=== PATIENT | female | born 1940 | race Caucasian/White ===

== ENCOUNTER 2017-04-17 16:17 | Inpatient (IN) | payer MEDICARE ==
[2017-04-17] MEDS ORDERED: LORazepam 1 MG TAB PO STA (16:36)
--- NOTE | 2017-04-17 16:38 | ED ---
General Adult HPI - General Source: patient, RN notes reviewed Mode of arrival: wheelchair Limitations: no limitations <Carlos Ferguson - Last Filed: 04/17/17 16:38> <Marcus Mendiola - Last Filed: 04/17/17 18:29> - General Chief complaint: Arrhythmia/Palpitations Stated complaint: Palpitations Time Seen by Provider: 04/17/17 16:33 - History of Present Illness Initial comments: Patient is a pleasant 76-year-old female presenting to the emergency department complaining of palpitations. Onset was prior to arrival. Patient feels her heart is going irregular. Patient states there may be some mild associated nausea and mild shortness of breath. Patient is near symptom-free at this time. Patient does admit to feeling anxious. Patient states she has had similar symptoms previously however workup determined was only a mild problem. No history of arrhythmia. (Carlos Ferguson) - Related Data Home Medications Medication Instructions Recorded Confirmed Aspirin 81 mg PO HS 04/17/17 04/17/17 Calcium Carbonate/Vitamin D3 1 cap PO HS 04/17/17 04/17/17 [Calcium 600-Vit D3 400 Caplet] Cyanocobalamin (Vitamin B-12) 1,000 mcg PO HS 04/17/17 04/17/17 [Vitamin B-12] Ferrous Sulfate [Feosol] 325 mg PO HS 04/17/17 04/17/17 Levothyroxine Sodium [Synthroid] 50 mcg PO DAILY 04/17/17 04/17/17 Lisinopril-Hctz 20-25 mg 0.5 tab PO DAILY 04/17/17 04/17/17 [Zestoretic 20-25] Metoprolol Tartrate [Lopressor] 25 mg PO BID 04/17/17 04/17/17 Simvastatin [Zocor] 40 mg PO HS 04/17/17 04/17/17 Allergies Allergy/AdvReac Type Severity Reaction Status Date / Time losartan Allergy Rash/Hives Verified 04/17/17 16:57 Review of Systems ROS Other: All systems not noted in ROS Statement are negative. Constitutional: Denies: fever Eyes: Denies: eye pain ENT: Denies: ear pain Respiratory: Reports: dyspnea. Denies: cough Cardiovascular: Reports: palpitations. Denies: chest pain Endocrine: Denies: fatigue Gastrointestinal: Reports: nausea. Denies: abdominal pain Genitourinary: Denies: dysuria Musculoskeletal: Denies: back pain Skin: Denies: rash Neurological: Denies: weakness Psychiatric: Reports: anxiety <Carlos Ferguson - Last Filed: 04/17/17 16:38> ROS Other: All systems not noted in ROS Statement are negative. <Marcus Mendiola - Last Filed: 04/17/17 18:29> ROS Statement: Those systems with pertinent positive or pertinent negative responses have been documented in the HPI. Past Medical History Past Medical History: Hyperlipidemia, Hypertension, Thyroid Disorder Additional Past Medical History / Comment(s): palpitations History of Any Multi-Drug Resistant Organisms: None Reported Past Surgical History: No Surgical Hx Reported Past Psychological History: No Psychological Hx Reported Smoking Status: Former smoker Past Alcohol Use History: None Reported Past Drug Use History: None Reported <Carlos Ferguson - Last Filed: 04/17/17 16:38> General Exam Limitations: no limitations General appearance: alert, in no apparent distress Head exam: Present: atraumatic Eye exam: Present: normal appearance, PERRL ENT exam: Present: normal oropharynx Neck exam: Present: normal inspection Respiratory exam: Present: normal lung sounds bilaterally. Absent: respiratory distress Cardiovascular Exam: Present: normal rhythm, irregular rhythm, normal heart sounds GI/Abdominal exam: Present: soft. Absent: tenderness Extremities exam: Present: normal inspection. Absent: calf tenderness Neurological exam: Present: alert Psychiatric exam: Present: normal affect, normal mood Skin exam: Present: normal color <Carlos Ferguson - Last Filed: 04/17/17 16:38> General appearance: alert, in no apparent distress Head exam: Present: atraumatic, normocephalic, normal inspection Eye exam: Present: normal appearance, PERRL, EOMI. Absent: scleral icterus, conjunctival injection, periorbital swelling ENT exam: Present: normal exam, mucous membranes moist Neck exam: Present: normal inspection. Absent: tenderness, meningismus, lymphadenopathy Respiratory exam: Present: normal lung sounds bilaterally. Absent: respiratory distress, wheezes, rales, rhonchi, stridor Cardiovascular Exam: Present: regular rate, normal rhythm, normal heart sounds. Absent: systolic murmur, diastolic murmur, rubs, gallop, clicks GI/Abdominal exam: Present: soft, normal bowel sounds. Absent: distended, tenderness, guarding, rebound, rigid Extremities exam: Present: normal inspection, full ROM, normal capillary refill. Absent: tenderness, pedal edema, joint swelling, calf tenderness Back exam: Present: normal inspection Neurological exam: Present: alert, oriented X3, CN II-XII intact Psychiatric exam: Present: normal affect, normal mood Skin exam: Present: warm, dry, intact, normal color. Absent: rash <Marcus Mendiola - Last Filed: 04/17/17 18:29> Course <Carlos Ferguson - Last Filed: 04/17/17 16:38> <Marcus Mendiola - Last Filed: 04/17/17 18:29> Vital Signs 04/17/17 16:23 Temperature 97.9 F Pulse Rate 91 Respiratory 18 Rate Blood Pressure 208/86 O2 Sat by Pulse 93 L Oximetry - Reevaluation(s) Reevaluation #1: 04/17/17 16:[address] Mendiola (Carlos Ferguson) Reevaluation #2: 04/17/17 17:22 Patient remains with adequate rate control (Marcus Mendiola) EKG Findings - EKG Comments: EKG Findings:: A. fib with rate of 92. QRS 82. QT 360. QTC 445. Normal axis. Normal QRS. Nonspecific T waves. <Carlos Ferguson - Last Filed: 04/17/17 16:38> Medical Decision Making <Carlos Ferguson - Last Filed: 04/17/17 16:38> - Lab Data Result diagrams: 04/17/17 16:50 04/17/17 16:50 - Radiology Data Radiology results: report reviewed (Chest x-ray negative, CT chest is negative for PE), image reviewed <Marcus Mendiola - Last Filed: 04/17/17 18:29> - Medical Decision Making 68 female here for evaluation of palpitations, A. fib, patient is suspected A. fib with RVR, will be admitted as is his new onset atrial fibrillation with RVR. (Marcus Mendiola) - Lab Data Lab Results 04/17/17 04/17/17 04/17/17 Range/Units 16:50 16:50 16:50 WBC 10.4 (3.8-10.6) k/uL RBC 3.56 L (3.80-5.40) m/uL Hgb 11.4 (11.4-16.0) gm/dL Hct 32.8 L (34.0-46.0) % MCV 92.0 (80.0-100.0) fL MCH 32.1 (25.0-35.0) pg MCHC 34.9 (31.0-37.0) g/dL RDW 13.6 (11.5-15.5) % Plt Count 327 (150-450) k/uL Neutrophils % 64 % Lymphocytes % 27 % Monocytes % 6 % Eosinophils % 1 % Basophils % 0 % Neutrophils # 6.7 (1.3-7.7) k/uL Lymphocytes # 2.8 (1.0-4.8) k/uL Monocytes # 0.6 (0-1.0) k/uL Eosinophils # 0.1 (0-0.7) k/uL Basophils # 0.0 (0-0.2) k/uL PT (9.0-12.0) sec INR (<1.2) APTT (22.0-30.0) sec D-Dimer (<0.60) mg/L FEU Sodium 133 L (137-145) mmol/L Potassium 4.6 (3.5-5.1) mmol/L Chloride 95 L (98-107) mmol/L Carbon Dioxide 25 (22-30) mmol/L Anion Gap 13 mmol/L BUN 26 H (7-17) mg/dL Creatinine 1.10 H (0.52-1.04) mg/dL Est GFR (MDRD) Af Amer 58 (>60 ml/min/1.73 sqM) Est GFR (MDRD) Non-Af 48 (>60 ml/min/1.73 sqM) Glucose 140 H (74-99) mg/dL Calcium 9.6 (8.4-10.2) mg/dL Magnesium 1.8 (1.6-2.3) mg/dL Total Bilirubin 0.7 (0.2-1.3) mg/dL AST 33 (14-36) U/L ALT 52 (9-52) U/L Alkaline Phosphatase 178 H (38-126) U/L Total Creatine Kinase 74 (30-135) U/L CK-MB (CK-2) 1.6 (0.0-2.4) ng/mL CK-MB (CK-2) Rel Index 2.2 Troponin I <0.012 (0.000-0.034) ng/mL Total Protein 7.2 (6.3-8.2) g/dL Albumin 4.3 (3.5-5.0) g/dL TSH 2.940 (0.465-4.680) mIU/L Free T4 1.40 (0.78-2.19) ng/dL Free T3 pg/mL 3.2 (2.8-5.3) pg/ml 04/17/17 Range/Units 16:50 WBC (3.8-10.6) k/uL RBC (3.80-5.40) m/uL Hgb (11.4-16.0) gm/dL Hct (34.0-46.0) % MCV (80.0-100.0) fL MCH (25.0-35.0) pg MCHC (31.0-37.0) g/dL RDW (11.5-15.5) % Plt Count (150-450) k/uL Neutrophils % % Lymphocytes % % Monocytes % % Eosinophils % % Basophils % % Neutrophils # (1.3-7.7) k/uL Lymphocytes # (1.0-4.8) k/uL Monocytes # (0-1.0) k/uL Eosinophils # (0-0.7) k/uL Basophils # (0-0.2) k/uL PT 10.0 (9.0-12.0) sec INR 1.0 (<1.2) APTT 22.2 (22.0-30.0) sec D-Dimer 0.68 H (<0.60) mg/L FEU Sodium (137-145) mmol/L Potassium (3.5-5.1) mmol/L Chloride (98-107) mmol/L Carbon Dioxide (22-30) mmol/L Anion Gap mmol/L BUN (7-17) mg/dL Creatinine (0.52-1.04) mg/dL Est GFR (MDRD) Af Amer (>60 ml/min/1.73 sqM) Est GFR (MDRD) Non-Af (>60 ml/min/1.73 sqM) Glucose (74-99) mg/dL Calcium (8.4-10.2) mg/dL Magnesium (1.6-2.3) mg/dL Total Bilirubin (0.2-1.3) mg/dL AST (14-36) U/L ALT (9-52) U/L Alkaline Phosphatase (38-126) U/L Total Creatine Kinase (30-135) U/L CK-MB (CK-2) (0.0-2.4) ng/mL CK-MB (CK-2) Rel Index Troponin I (0.000-0.034) ng/mL Total Protein (6.3-8.2) g/dL Albumin (3.5-5.0) g/dL TSH (0.465-4.680) mIU/L Free T4 (0.78-2.19) ng/dL Free T3 pg/mL (2.8-5.3) pg/ml Critical Care Time Critical Care Time: Yes <Marcus Mendiola - Last Filed: 04/17/17 18:29> Disposition <Carlos Ferguson - Last Filed: 04/17/17 16:38> <Marcus Mendiola - Last Filed: 04/17/17 18:29> Clinical Impression: Atrial fibrillation with RVR Disposition: ADMITTED IP TO THIS HOSP Condition: Fair Referrals: Arpit Ramey DO [Primary Care Provider] - 1-2 days
[2017-04-17 17:01] LABS: Basophils % (A) 0 %; CH 31.3; CHCM 34.1; Eosinophils # (A) 0.1 k/uL (0-0.7); Eosinophils % (A) 1 %; HCT 32.8 % (34.0-46.0); HGB 11.4 gm/dL (11.4-16.0); Luc # (Auto) 0.16; Luc % (Auto) 2; Lymphocytes # (A) 2.8 k/uL (1.0-4.8); Lymphocytes % (A) 27 %; MCH 32.1 pg (25.0-35.0); MCHC 34.9 g/dL (31.0-37.0); Monocytes # (A) 0.6 k/uL (0-1.0); Monocytes % (A) 6 %; Neutrophils # (A) 6.7 k/uL (1.3-7.7); Neutrophils % (A) 64 %; RBC 3.56 m/uL (3.80-5.40); RDW 13.6 % (11.5-15.5); WBC 10.4 k/uL (3.8-10.6); WBC (Perox) 11.13
[2017-04-17 17:11] LABS: Calcium 9.6 mg/dL (8.4-10.2); Magnesium 1.8 mg/dL (1.6-2.3); Potassium 4.6 mmol/L (3.5-5.1); Total Bilirubin 0.7 mg/dL (0.2-1.3); Total Protein 7.2 g/dL (6.3-8.2)
[2017-04-17 17:14] LABS: Partial Thromboplastin Time 22.2 sec (22.0-30.0)
[2017-04-17 17:19] LABS: Creatine Kinase 74 U/L (30-135)
[2017-04-17] MEDS ORDERED: RX INFO: IV CONTRAST WAS GIVEN 1 EACH MISC MISCELLANE PRN (17:19)
[2017-04-17] MEDS ORDERED: NITROGLYCERIN SL TABS 0.4 MG TAB SUBLINGUAL PRN (17:20)
[2017-04-17] MEDS ORDERED: ASPIRIN 81 MG PO STA (17:20)
[2017-04-17 17:32] LABS: Creatine Kinase MB 1.6 ng/mL (0.0-2.4); Troponin I <0.012 ng/mL (0.000-0.034)
--- NOTE | 2017-04-17 17:32 | XR ---
EXAMINATION TYPE: XR chest 2V DATE OF EXAM: 04/17/2017 COMPARISON: Chest x-ray August 12, 2013. HISTORY: Dysrhythmia and shortness of breath TECHNIQUE: Frontal and lateral views of the chest are obtained. 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 There is no fo hari air space opacity, pleural effusion, or pneumothorax seen. The cardiac silhouette size is stable and mildly enlarged. Degenerative change bilateral shoulders is redemonstrated. IMPRESSION: Mild cardiomegaly without acute pulmonary process. No significant change from prior.
--- NOTE | 2017-04-17 18:10 | CT ---
EXAMINATION TYPE: CT angio chest DATE OF EXAM: 04/17/2017 COMPARISON: NONE HISTORY: SOB and palpitations today. CT DLP: 322.5 mGycm. Automated Exposure Control for Dose Reduction was Utilized. CONTRAST: CTA scan of the thorax is performed with IV Contrast, patient injected with 70 mL of Visipaque 320, p ulmonary embolism protocol. MIP Images are created on CT scanner and reviewed. FINDINGS: LUNGS: Dependent atelectasis in left lung base is present. There is additional linear scarring or ate lectasis in the left lung base. There is no concerning parenchymal nodule or mass identified bilatera lly. There is mild central peribronchial wall thickening. No pleural effusion or pneumothorax is seen laterally. MEDIASTINUM: There is satisfactory enhancement of the pulmonary artery and its branches, there is no CT evidence for pulmonary embolism. There are no greater than 1 cm hilar or mediastinal lymph nodes. No significant pericardial effusion is seen. Cardiomegaly is noted. There is mild left atrial and left ventricular dilatation. Some coronary artery calcification is seen which is noted marker for cor onary artery disease. OTHER: Dependent gallstones are seen in gallbladder. Visualized liver is somewhat small in size. [place] interposition is noted. There is mild multilevel spurring in thoracic spine. IMPRESSION: 1. No CT evidence for pulmonary embolism. 2. Mild cardiomegaly with suggestion of mild chronic bronchitis. No suspicious focal infiltrate.
[2017-04-17] MEDS: SODIUM CHLORIDE 0.9% 1,000 ML IV SCH (18:29)
[2017-04-17] MEDS ORDERED: HEPARIN SODIUM,PORCINE 5,000 UNIT/ML 1 ML VIAL IV PRN ×2 (18:30→23:59)
[2017-04-17] MEDS ORDERED: HEPARIN SODIUM,PORCINE/D5W PMX 25,000 UNIT in DEXTROSE/WATER 1 500ML.BAG IV SCH ×2 (18:30→23:15)
[2017-04-17] MEDS ORDERED: HEPARIN SODIUM,PORCINE 10,000 UNIT/ML 1 ML VIAL IV ONE (18:30)
[2017-04-17 21:57] VITALS: BMI 31.6
[2017-04-17 23:06] LABS: Creatine Kinase 72 U/L (30-135)
[2017-04-17 23:19] LABS: Creatine Kinase MB 1.6 ng/mL (0.0-2.4); Troponin I <0.012 ng/mL (0.000-0.034)
[2017-04-18] MEDS: SODIUM CHLORIDE 0.9% 1,000 ML IV SCH ×2 (03:58→11:47)
[2017-04-18 06:40] LABS: Basophils % (A) 0 %; CH 31.7; CHCM 33.4; Eosinophils # (A) 0.1 k/uL (0-0.7); Eosinophils % (A) 2 %; HCT 30.4 % (34.0-46.0); HGB 10.2 gm/dL (11.4-16.0); Luc % (Auto) 1; Lymphocytes % (A) 27 %; MCHC 33.6 g/dL (31.0-37.0); MCV 95.3 fL (80.0-100.0); Mean Platelet Volume 7.8; Monocytes # (A) 0.4 k/uL (0-1.0); Monocytes % (A) 6 %; Neutrophils # (A) 4.7 k/uL (1.3-7.7); Neutrophils % (A) 64 %; RBC 3.19 m/uL (3.80-5.40); RDW 14.4 % (11.5-15.5); WBC 7.5 k/uL (3.8-10.6); WBC (Perox) 7.89
[2017-04-18] MEDS: LEVOTHYROXINE 50 MCG TAB PO SCH (06:47)
[2017-04-18 06:59] LABS: Cholesterol 159 mg/dL (<200); HDL Cholesterol 87 mg/dL (40-60)
[2017-04-18 07:01] LABS: Creatine Kinase 57 U/L (30-135)
[2017-04-18 07:13] LABS: Creatine Kinase MB 1.3 ng/mL (0.0-2.4); Troponin I <0.012 ng/mL (0.000-0.034)
[2017-04-18] MEDS ORDERED: METOPROLOL TARTRATE 25 MG TAB PO SCH (09:00)
[2017-04-18] MEDS ORDERED: ASPIRIN 325 MG TAB PO SCH (09:00)
[2017-04-18] MEDS: LISINOPRIL-HCTZ 20-25 MG 1 EACH TAB PO SCH (09:07)
[2017-04-18] MEDS: ATORVASTATIN 80 MG TAB PO SCH (09:08)
--- NOTE | 2017-04-18 10:04 | P.CRDCN ---
Addendum entered and electronically signed by Lidya Bryant MD 05/29/17 03:15: Original Note: <Aisha Perez - Last Filed: 04/18/17 09:42> History of Present Illness Consult date: 04/18/17 Requesting physician: Dorie Cortes Reason for Consult (text): palpitations Chief complaint: Nausea and shortness of breath History of present illness: This is a pleasant 76-year-old female who follows with Dr. VC Alcantar in the office. She has a known history of hypertension, hyperlipidemia, hypothyroidism,palpitations, she also had a heart catheterization performed in 2012 which revealed normal coronary arteries. Most recent stress test was performed in January of this year which did not reveal any evidence of reversible ischemia. Echocardiogram with Doppler study was performed which in February of last year revealed normal LV size with normal LV function. Moderate mitral regurgitation was noted as well as moderate pulmonary regurgitation. Patient presented to the hospital with symptoms of nausea and associated shortness of breath. She denied any clear-cut palpitations, but she does state that she feels palpitations off and on and has for the past several years. She also mentioned that Dr. Posey had put a monitor on her in the past which did not reveal anything significant according to her. EKG on arrival here was read as atrial fibrillation with PVCs and PACs, upon closer review it appears that the patient is in a normal sinus rhythm with frequent PACs. Subsequent EKG performed this morning also shows a normal sinus rhythm, with nonspecific ST-T wave changes in the anterior lateral leads. Chest x-ray reveals mild cardiomegaly without any acute pulmonary process. CTA of the chest negative for pulmonary embolism. Laboratory data, hemoglobin on admission 11.4, 10.2 this morning. D-dimer 0.6, potassium 4.6, BUN 26, creatinine 1.1. Blood pressure on arrival 208/86 with a heart rate in the 90s. 93% on room air. Past Medical History Past Medical History: Hyperlipidemia, Hypertension, Thyroid Disorder Additional Past Medical History / Comment(s): palpitations History of Any Multi-Drug Resistant Organisms: None Reported Past Surgical History: No Surgical Hx Reported Additional Past Surgical History / Comment(s): catarct surgery Past Psychological History: No Psychological Hx Reported Smoking Status: Former smoker Past Alcohol Use History: None Reported Past Drug Use History: None Reported - Past Family History Father Family Medical History: Hypertension Mother Additional Family Medical History / Comment(s): palpitations, heart flutter Medications and Allergies Home Medications Medication Instructions Recorded Confirmed Type Aspirin 81 mg PO HS 04/17/17 04/17/17 History Calcium Carbonate/Vitamin D3 1 cap PO AC-LUNCH 04/17/17 04/17/17 History [Calcium 600-Vit D3 400 Caplet] Cyanocobalamin (Vitamin B-12) 1,000 mcg PO AC-LUNCH 04/17/17 04/17/17 History [Vitamin B-12] Ferrous Sulfate [Iron (65 MG 325 mg PO AC-LUNCH 04/17/17 04/17/17 History Elemental)] Levothyroxine Sodium [Synthroid] 50 mcg PO DAILY 04/17/17 04/17/17 History Lisinopril-Hctz 20-25 mg 0.5 tab PO DAILY 04/17/17 04/17/17 History [Zestoretic 20-25] Atorvastatin [Lipitor] 80 mg PO DAILY #30 tab 04/19/17 Rx Metoprolol Tartrate [Lopressor] 25 mg PO TID #90 tab 04/19/17 Rx Allergies Allergy/AdvReac Type Severity Reaction Status Date / Time losartan Allergy Rash/Hives Verified 04/17/17 16:57 Physical Exam Vitals: Vital Signs Temp Pulse Pulse Pulse Resp BP BP 04/18/17 08:00 98.2 F 63 16 129/68 04/18/17 04:00 97.4 F L 58 L 58 L 18 132/65 04/18/17 00:00 98.1 F 65 65 18 107/67 04/17/17 21:45 97.7 F 72 72 18 153/71 04/17/17 20:47 97.4 F L 74 18 136/66 04/17/17 19:30 66 18 151/74 04/17/17 18:30 97.8 F 70 18 139/64 04/17/17 18:00 67 18 138/63 04/17/17 17:30 72 18 144/66 04/17/17 16:23 97.9 F 91 18 208/86 Pulse Ox 04/18/17 08:00 98 04/18/17 04:00 99 04/18/17 00:00 98 04/17/17 21:45 100 04/17/17 20:47 97 04/17/17 19:30 98 04/17/17 18:30 100 04/17/17 18:00 99 04/17/17 17:30 98 04/17/17 16:23 93 L Intake and Output 04/17/17 04/18/17 04/18/17 22:59 06:59 14:59 Intake Total 1180 Balance 1180 Intake: IV 1000 Sodium Chloride 0.9% 1, 1000 000 ml @ 100 mls/hr IV . Q10H SAM Rx#:[id number] Intake, IV Titration 180 Amount Heparin Sodium,Porcine/ 180 D5w Pmx 25,000 unit In Dextrose/Water 1 500ml. bag @ 12 UNITS/KG/HR 18. 83 mls/hr IV .Q24H SAM Rx #:[id number] Other: Voiding Method Toilet Toilet Toilet # Voids 1 2 Weight 78.471 kg 79.5 kg PHYSICAL EXAMINATION: HEENT: Head is atraumatic, normocephalic. Pupils equal, round. Neck is supple. There is no elevated jugular venous pressure. HEART EXAMINATION: Heart S1 and S2 with systolic murmur is heard. CHEST EXAMINATION: Lungs are clear to auscultation and precussion. No chest wall tenderness is noted on palpation or with deep breathing. ABDOMEN: Soft, nontender. Bowel sounds are heard. No organomegaly noted. EXTREMITIES: 2+ peripheral pulses with no evidence of peripheral edema and no calf tenderness noted. NEUROLOGIC patient is awake, alert and oriented -3. . Results 04/18/17 05:25 04/17/17 16:50 Cardiac Enzymes 04/17/17 04/17/17 04/17/17 Range/Units 16:50 16:50 22:25 AST 33 (14-36) U/L CK-MB (CK-2) 1.6 1.6 (0.0-2.4) ng/mL Troponin I <0.012 <0.012 (0.000-0.034) ng/mL 04/18/17 Range/Units 05:25 AST (14-36) U/L CK-MB (CK-2) 1.3 (0.0-2.4) ng/mL Troponin I <0.012 (0.000-0.034) ng/mL Coagulation 04/17/17 04/18/17 04/18/17 Range/Units 16:50 01:03 05:25 PT 10.0 (9.0-12.0) sec APTT 22.2 53.1 H 57.1 H (22.0-30.0) sec Lipids 04/18/17 Range/Units 05:25 Triglycerides 40 (<150) mg/dL Cholesterol 159 (<200) mg/dL HDL Cholesterol 87 H (40-60) mg/dL CBC 04/17/17 04/18/17 Range/Units 16:50 05:25 WBC 10.4 7.5 (3.8-10.6) k/uL RBC 3.56 L 3.19 L (3.80-5.40) m/uL Hgb 11.4 10.2 L (11.4-16.0) gm/dL Hct 32.8 L 30.4 L (34.0-46.0) % Plt Count 327 243 (150-450) k/uL Comprehensive Metabolic Panel 04/17/17 Range/Units 16:50 Sodium 133 L (137-145) mmol/L Potassium 4.6 (3.5-5.1) mmol/L Chloride 95 L (98-107) mmol/L Carbon Dioxide 25 (22-30) mmol/L BUN 26 H (7-17) mg/dL Creatinine 1.10 H (0.52-1.04) mg/dL Glucose 140 H (74-99) mg/dL Calcium 9.6 (8.4-10.2) mg/dL AST 33 (14-36) U/L ALT 52 (9-52) U/L Alkaline Phosphatase 178 H (38-126) U/L Total Protein 7.2 (6.3-8.2) g/dL Albumin 4.3 (3.5-5.0) g/dL Current Medications Generic Name Dose Route Start Last Admin Trade Name Freq PRN Reason Stop Dose Admin Aspirin 325 mg 04/18/17 09:00 04/18/17 09:08 Aspirin PO 325 mg DAILY SAM Administration Atorvastatin Calcium 80 mg 04/18/17 09:00 04/18/17 09:08 Lipitor PO 80 mg DAILY SAM Administration Calcium Carbonate 1 each 04/18/17 12:30 Oscal 500+D PO AC-LUNCH [facility] Cyanocobalamin 1,000 mcg 04/18/17 12:30 Vitamin B-12 PO AC-LUNCH SAM Ferrous Sulfate 325 mg 04/18/17 12:30 Feosol PO AC-LUNCH SAM Lisinopril/HCTZ 0.5 each 04/18/17 09:00 04/18/17 09:07 Zestoretic 20-25 PO 0.5 each DAILY SAM Administration Heparin Sodium (Porcine) 0 unit 04/17/17 23:59 Heparin IV PER PROTOCOL PRN Low PTT Protocol Sodium Chloride 1,000 mls @ 100 mls/hr 04/17/17 17:30 04/18/17 03:58 Saline 0.9% IV 100 mls/hr .Q10H SAM Administration Heparin Sodium/Dextrose 25,000 500 mls @ 18.83 mls/hr 04/17/17 23:15 00:16 unit/ IV Solution IV 12 units/kg/hr .Q24H SAM 18.83 mls/hr Protocol Administration 12 UNITS/KG/HR Levothyroxine Sodium 50 mcg 04/18/17 06:30 04/18/17 06:47 Synthroid PO 50 mcg 0630 SAM Administration Metoprolol Tartrate 25 mg 04/18/17 09:00 04/18/17 09:08 Lopressor PO 25 mg BID SAM Administration Miscellaneous Information 1 each 04/17/17 17:19 Rx Info: Iv Contrast Was Given MISCELLANE 04/19/17 17:19 DAILY PRN Per Protocol Nitroglycerin 0.4 mg 04/17/17 17:20 Nitrostat SUBLINGUAL Q5M PRN Chest Pain Intake and Output 04/17/17 04/18/17 04/18/17 22:59 06:59 14:59 Intake Total 1180 Balance 1180 Intake: IV 1000 Sodium Chloride 0.9% 1, 1000 000 ml @ 100 mls/hr IV . Q10H SAM Rx#:[id number] Intake, IV Titration 180 Amount Heparin Sodium,Porcine/ 180 D5w Pmx 25,000 unit In Dextrose/Water 1 500ml. bag @ 12 UNITS/KG/HR 18. 83 mls/hr IV .Q24H SAM Rx #:[id number] Other: Voiding Method Toilet Toilet Toilet # Voids 1 2 Weight 78.471 kg 79.5 kg 04/18/17 05:25 04/17/17 16:50 EKG Interpretations (text) EKG shows a normal sinus rhythm with frequent PACs Assessment and Plan Plan: Assessment and plan #1 symptoms of palpitations with associated nausea and shortness of breath. EKG shows normal sinus rhythm with frequent PACs. CTA of the chest negative for pulmonary embolism. TSH normal. #2 accelerated hypertension #3 hyperlipidemia #4 hypothyroidism Plan We will repeat an echocardiogram with Doppler study. Patient recently had a stress test performed in January of this year which was negative for any reversible ischemia. We will discontinue the IV heparin, decrease aspirin to 81 mg daily, increased dose of beta elen to 25 mg one tablet by mouth 3 times a day. Further recommendations to follow. DNP note has been reviewed, I agree with a documented findings and plan of care. Patient was seen and examined. <Lidya Bryant - Last Filed: 05/29/17 03:14> Results 04/19/17 05:47 04/17/17 16:50 04/19/17 05:47 04/17/17 16:50
[2017-04-18] MEDS: CYANOCOBALAMIN 500 MCG TAB PO SCH (11:47)
[2017-04-18] MEDS: CALCIUM CARB-VIT D 500MG-200UN 1 EACH TAB PO SCH (11:48)
[2017-04-18] MEDS: FERROUS SULFATE 325 MG TAB PO SCH (11:48)
--- NOTE | 2017-04-18 11:54 | ECHOF ---
Referral Reason:new afib MEASUREMENTS -------- HEIGHT: 160.0 cm WEIGHT: 78.5 kg BP: 132/65 RVIDd: 3.0 cm (< 3.3) IVSd: 1.1 cm (0.6 - 1.1) LVIDd: 5.0 cm (3.9 - 5.3) LVPWd: 1.2 cm (0.6 - 1.1) IVSs: 1.3 cm LVIDs: 4.2 cm LVPWs: 1.3 cm LA Diam: 4.3 cm (2.7 - 3.8) LAESV Index (A-L): 37.74 ml/m Ao Diam: 3.0 cm (2.0 - 3.7) AV Cusp: 1.9 cm (1.5 - 2.6) LA Diam: 4.7 cm (2.7 - 3.8) MV EXCURSION: 17.007 mm (> 18.000) MV EF SLOPE: 52 mm/s (70 - 150) EPSS: 1.0 cm RAP: 5.00 mmHg RVSP: 21.14 mmHg FINDINGS -------- Sinus rhythm. This was a technically good study. LV size, wall thickness and systolic function are normal, with an EF greater than 55%. The right ventricle is normal in size. LA is moderately dilated 34-39 ml/m2 The right atrial size is normal. The aortic valve is trileaflet, and appears structurally normal. No aortic stenosis or regurgitation. Mild mitral regurgitation is present. Mild tricuspid regurgitation present. There is no evidence of pulmonary hypertension. The right ventricular systolic pressure, as measured by Doppler, is 21.14mmHg. There is no pulmonic regurgitation present. The aortic root size is normal. Echo free space may represent effusion or a pericardial fat pad. CONCLUSIONS -------- 1. LV size, wall thickness and systolic function are normal, with an EF greater than 55%. 2. LA is moderately dilated 34-39 ml/m2 3. Mild mitral regurgitation is present. 4. Mild tricuspid regurgitation present. 5. There is no evidence of pulmonary hypertension. 6. The right ventricular systolic pressure, as measured by Doppler, is 21.14mmHg. 7. Echo free space may represent effusion or a pericardial fat pad. [employer] LEAD DEVELOPER: Sammi Fonatna RDCS
[2017-04-18] MEDS: METOPROLOL TARTRATE 25 MG TAB PO SCH ×2 (15:16→21:59)
--- NOTE | 2017-04-18 15:39 | HP ---
DATE OF ADMISSION: 04/17/17 CHIEF COMPLAINT: Palpitations and chest pain. HISTORY OF PRESENT ILLNESS: This is a 76-year-old woman with a past medical history of multiple medical problems including history of hypertension, hyperlipidemia, hypothyroidism, history of cataract surgery being followed by Dr. Ramey in the outpatient setting, presented to [facility] with complaints of palpitations. Minimal chest discomfort and also complained of ( ). The patients heart rate is irregular and the patient was associated with some mild nausea and as well as shortness of breath also. The patient was found to be in atrial fibrillation and the patient started on IV heparin. The patient also had a chest CTA which showed no CT evidence of pulmonary embolism and mild cardiomegaly was also suspected. The patient was admitted to the hospital for further evaluation and treatment . Pulse rate on admission was found to be 91. Past medical history of hypertension, hyperlipidemia, history of thyroid disorder, hypothyroidism. Medications prior to admission are: Home medications are: 1. Iron sulfate 320 mg daily. 2. Vitamin B12 1000 mcg po daily. 3. Vitamin D3 one capsule daily. 4. Zestoretic 0.5 daily. 5. Synthroid 50 mcg po daily. 6. Sulfa 40 mg q.h.s. 7. Lopressor 25 mg po b.i.d. 8. Aspirin 81 mg po q.h.s. ALLERGIES: LOSARTAN. FAMILY HISTORY: No history of heart disease or strokes in the family. SOCIAL HISTORY: Previous history of smoking. No history of current smoking or alcohol intake. REVIEW OF SYSTEMS: ENT: Diminished vision. Diminished hearing. Cardiovascular : As mentioned earlier. Respiratory: No cough, hemoptysis. GI: No nausea or vomiting. : No dysuria. Nervous system: No numbness or weakness. Allergy /Immunology: No asthma or hayfever. Musculoskeletal: As mentioned earlier. Hematology/Oncology: No history of anemia. Endocrine: History of diabetes mellitus. No hypothyroidism. Constitutional: As mentioned earlier. Dermatology: Negative. Rheumatology: Negative. Psychiatry: As mentioned earlier. PHYSICAL EXAMINATION: Alert and oriented times three. Pulse 67. Blood pressure 130/62. Respiratory rate 18, temperature 97.9 degrees. Pulse ox 99% on 2 L. HEENT: Conjunctivae normal. Oral mucosa moist. NECK: No JVD. No carotid bruit. No lymph node enlargement. Cardiovascular: S1, S2 muffled. No S3, no S4. Respiratory: Breath sounds diminished at the bases. A few scattered rhonchi and no crackles. Abdomen is soft. Nontender. No mass palpable. Legs: No edema. Nervous system: Higher functions as mentioned earlier. Moves all four limbs. No focal motor or sensory deficits. Lymphatics: No lymph nodes palpable in the neck, axillae or groin. SKIN: No ulcer, rash or bleeding. LABS: Hemoglobin 11.4, sodium 133. Creatinine 1.10. ASSESSMENT: 1. Atrial fibrillation, present on admission. 2. Chest pain for evaluation. 3. Coronary artery disease. 4. Hyponatremia. 5. Increased creatinine with mild acute renal failure. 6. History of hypertension. 7. Hyperlipidemia. 8. History of hypothyroidism. 9. History of palpitations. 10. History of cataract surgery. RECOMMENDATIONS AND DISCUSSION: In this 70-year-old woman who presented with multiple complex medical issues, we will monitor the patient closely. Continue the current medications. Continue symptomatic treatment. Otherwise, the patient started on IV heparin. I would also recommend 2D echo with Doppler. TSH. Resume the home medications. Repeat labs in the morning. Otherwise, closely follow with cardiology. Otherwise, prognosis is guarded because of the multiple complex medical issues. Further recommendations to follow. JANINED
[2017-04-18] MEDS ORDERED: NON-FORMULARY DRUG (Simvastatin 40 MG) PO SCH (21:00)
[2017-04-19] MEDS: SODIUM CHLORIDE 0.9% 1,000 ML IV SCH ×2 (00:01→09:13)
[2017-04-19] MEDS: LEVOTHYROXINE 50 MCG TAB PO SCH (06:20)
[2017-04-19 06:31] LABS: Basophils % (A) 0 %; CH 31.6; CHCM 33.5; Eosinophils # (A) 0.1 k/uL (0-0.7); Eosinophils % (A) 2 %; HCT 29.8 % (34.0-46.0); HDW 2.11; HGB 10.2 gm/dL (11.4-16.0); Luc # (Auto) 0.06; Luc % (Auto) 1; Lymphocytes # (A) 1.5 k/uL (1.0-4.8); Lymphocytes % (A) 24 %; MCH 32.4 pg (25.0-35.0); MCHC 34.3 g/dL (31.0-37.0); MCV 94.6 fL (80.0-100.0); Mean Platelet Volume 7.6; Monocytes # (A) 0.4 k/uL (0-1.0); Monocytes % (A) 6 %; Neutrophils # (A) 4.1 k/uL (1.3-7.7); Neutrophils % (A) 67 %; RBC 3.15 m/uL (3.80-5.40); WBC 6.2 k/uL (3.8-10.6); WBC (Perox) 6.68
[2017-04-19] MEDS: LISINOPRIL-HCTZ 20-25 MG 1 EACH TAB PO SCH (08:55)
[2017-04-19] MEDS: METOPROLOL TARTRATE 25 MG TAB PO SCH (08:56)
[2017-04-19] MEDS: ATORVASTATIN 80 MG TAB PO SCH (08:56)
[2017-04-19] MEDS ORDERED: ASPIRIN 81 MG PO SCH (09:00)
[2017-04-19 11:27] VITALS: RESP 16
[2017-04-19] MEDS: CALCIUM CARB-VIT D 500MG-200UN 1 EACH TAB PO SCH (12:19)
[2017-04-19] MEDS: FERROUS SULFATE 325 MG TAB PO SCH (12:19)
[2017-04-19] MEDS: CYANOCOBALAMIN 500 MCG TAB PO SCH (12:19)
[2017-04-19 13:51] VITALS: BP 150/98; PULSE 66; TEMP 98.3
--- NOTE | 2017-04-19 14:25 | P.PN ---
Subjective Principal diagnosis: Palpitations This is a pleasant 76-year-old female who follows with Dr. VC Alcantar in the office. She has a known history of hypertension, hyperlipidemia, hypothyroidism,palpitations, she also had a heart catheterization performed in 2012 which revealed normal coronary arteries. Most recent stress test was performed in January of this year which did not reveal any evidence of reversible ischemia. Echocardiogram with Doppler study was performed which in February of last year revealed normal LV size with normal LV function. Moderate mitral regurgitation was noted as well as moderate pulmonary regurgitation. Patient presented to the hospital with symptoms of nausea and associated shortness of breath. She denied any clear-cut palpitations, but she does state that she feels palpitations off and on and has for the past several years. She also mentioned that Dr. Alcantar had put a monitor on her in the past which did not reveal anything significant according to her. EKG on arrival here was read as atrial fibrillation with PVCs and PACs, upon closer review it appears that the patient is in a normal sinus rhythm with frequent PACs. Subsequent EKG performed this morning also shows a normal sinus rhythm, with nonspecific ST-T wave changes in the anterior lateral leads. Chest x-ray reveals mild cardiomegaly without any acute pulmonary process. CTA of the chest negative for pulmonary embolism. Laboratory data, hemoglobin on admission 11.4, 10.2 this morning. D-dimer 0.6, potassium 4.6, BUN 26, creatinine 1.1. Blood pressure on arrival 208/86 with a heart rate in the 90s. 93% on room air. 04/19/2017 Patient seen and examined this morning, continues to feel intermittent palpitations. There are no arrhythmias noted on the monitor. Echocardiogram with Doppler study was performed which revealed a normal left ventricular systolic function. Objective - Vital Signs Vital signs: Vital Signs Temp 98.3 F 04/19/17 12:00 Pulse 66 04/19/17 12:00 Resp 16 04/19/17 12:00 BP 150/98 04/19/17 12:00 Pulse Ox 99 04/19/17 12:00 Intake & Output 04/18/17 04/19/17 04/19/17 18:59 06:59 18:59 Intake Total 1640 Balance 1640 Weight 80.4 kg Intake: Oral 1640 Other: Voiding Method Toilet Toilet # Voids 2 1 - Exam PHYSICAL EXAMINATION: HEENT: Head is atraumatic, normocephalic. Pupils equal, round. Neck is supple. There is no elevated jugular venous pressure. HEART EXAMINATION: Heart S1 S2 1 systolic murmur is heard CHEST EXAMINATION: Lungs are clear to auscultation and precussion. No chest wall tenderness is noted on palpation or with deep breathing. ABDOMEN: Soft, nontender. Bowel sounds are heard. No organomegaly noted. EXTREMITIES: 2+ peripheral pulses with no evidence of peripheral edema and no calf tenderness noted. NEUROLOGIC patient is awake, alert and oriented -3. . - Labs CBC & Chem 7: 04/19/17 05:47 04/17/17 16:50 Labs: Abnormal Lab Results - Last 24 Hours (Table) 04/19/17 Range/Units 05:47 RBC 3.15 L (3.80-5.40) m/uL Hgb 10.2 L (11.4-16.0) gm/dL Hct 29.8 L (34.0-46.0) % Assessment and Plan Plan: Assessment and plan #1 symptoms of palpitations with associated nausea and shortness of breath. EKG shows normal sinus rhythm with frequent PACs. CTA of the chest negative for pulmonary embolism. TSH normal. #2 accelerated hypertension #3 hyperlipidemia #4 hypothyroidism Plan Cardiac gram with Doppler study was performed which revealed normal left ventricular systolic function. Patient recently had a stress test performed in January of this year which was negative for any reversible ischemia. Patient may be able to be discharged home from cardiology's perspective, she has a follow- up appointment with Dr. VC Alcantar in the office in April. DNP note has been reviewed, I agree with a documented findings and plan of care. Patient was seen and examined.
--- NOTE | 2017-04-19 15:37 | PN ---
DATE OF SERVICE: 04/18/17 This 76-year-old woman who was admitted with atrial fibrillation with controlled ventricular rate, also developed symptoms of nausea. The patient is feeling improving. No chest pain. No palpitations. 2D echo was done which showed ejection fraction greater than 50% with moderately dilated LA. Chest CT was also done which showed no CT evidence of pulmonary embolism. The patient is being closely monitored at this time. No chest pain. No palpitations. No fever. There is no history of fever, rigors or chills. On exam, alert and oriented times three. Pulse is 66. Blood pressure is 120/ 67. Respiratory rate 20. Temperature 98.3, pulse ox 98% on room air. HEENT: Conjunctivae normal. NECK: No JVD. Cardiovascular: S1, S2 muffled. Respiratory: Breath sounds diminished at the bases. No rhonchi. No crackles. Abdomen is soft. Nontender. Legs: No edema. No swelling. Nervous system: No focal deficits. The labs are WBC 7.5, hemoglobin 10.2. Creatinine 1.10. FINAL ASSESSMENT: 1. Palpitation with possible atrial fibrillation with fast ventricular rate, present prior to admission. 2. Currently atrial fibrillation, rate controlled. 3. Chest pain for evaluation. 4. History of coronary artery disease. 5. Hyponatremia. 6. Increased creatinine with mild acute renal failure. 7. History of hypertension. 8. History of hyperlipidemia. 9. History of hypothyroidism 10. History of palpitations. 11. History of cataract surgery. RECOMMENDATIONS AND DISCUSSION: Recommend to continue the current medications, continue symptomatic treatment. Otherwise at this time, I recommend to continue current medications. Continue symptomatic treatment. Closely follow with cardiology. 2D echo noted. Increased ambulation. Further recommendations to follow. MTDD
--- NOTE | 2017-04-22 13:13 | DS ---
FINAL DIAGNOSES: 1. Palpitation with possible atrial fibrillation with fast ventricular rate, present prior to admission. 2. Currently atrial fibrillation, rate controlled. 3. Chest pain for evaluation. 4. Coronary artery disease. 5. Hyponatremia. 6. Increased creatinine with mild acute renal failure. 7. Hypertension. 8. Hyperlipidemia. 9. Hypothyroidism. 10. Palpitation. 11. History of cataract surgery. DISCHARGE DISPOSITION: The patient will be discharged in stable condition with guarded prognosis. HISTORY OF PRESENT ILLNESS: This 76-year-old woman with a past medical history of multiple medical problems as mentioned earlier admitted with atrial fibrillation was treated symptomatically. Cardiology saw the patient. On exam, vitals are stable. CARDIOVASCULAR: S1 and S2, muffled. ABDOMEN: Soft. NERVOUS SYSTEM: No focal deficits. DISCHARGE ADVICE: 1. Diet is cardiac. 2. Activity limited until followup. 3. Follow up with Dr. Ramey in 2 to 3 days. 4. Follow up with Cardiology as recommended. Medications will be: 1. Ecotrin 81 mg daily. 2. Lipitor 80 mg p.o. daily. 3. Calcium carbonate 1 capsule p.o. daily. 4. Vitamin B12, 1000 mcg p.o. daily. 5. Iron sulfate 325 mg daily. 6. Synthroid 50 mcg p.o. daily. 7. Lisinopril hydrochlorothiazide daily. 8. Lopressor 25 mg p.o. MTDD
== END 2017-04-19 16:36 | disposition home or self-care (01) | DRG 309 ==
LOC: EC 16:17 → 6SEL 17:20
PROVIDERS: ADMIT Hospitalist; ATTEND Hospitalist
DX: I48.91 Unspecified atrial fibrillation (principal); E87.1 Hypo-osmolality and hyponatremia; N17.9 Acute kidney failure, unspecified; I34.0 Nonrheumatic mitral (valve) insufficiency; I37.1 Nonrheumatic pulmonary valve insufficiency; I49.3 Ventricular premature depolarization; I10 Essential (primary) hypertension; E03.9 Hypothyroidism, unspecified; E78.5 Hyperlipidemia, unspecified; I25.10 Atherosclerotic heart disease of native coronary artery without angina pectoris; R07.9 Chest pain, unspecified; Z79.82 Long term (current) use of aspirin; Z79.899 Other long term (current) drug therapy; Z87.891 Personal history of nicotine dependence; Z88.8 Allergy status to other drugs, medicaments and biological substances; Z82.49 Family history of ischemic heart disease and other diseases of the circulatory system
CPT/HCPCS: 36415; 71020; 71275; 80053; 80061; 82550; 82553; 83735; 84439; 84443; 84481; 84484; 85025; 85379; 85610; 85730; 93005; 93306; 96361; 96365; 96366; 96376; 99285

== ENCOUNTER 2018-09-15 12:44 | Emergency (ER) | payer MEDICARE ==
[2018-09-15 12:49] VITALS: RESP 20; TEMP 98.1
[2018-09-15 14:14] LABS: Appearance,Urine Clear (Clear); Bilirubin,Urine Negative (Negative); Blood,Urine Negative (Negative); Color,Urine Yellow; Glucose,Urine (UA) Negative (Negative); Ketones,Urine Negative (Negative); Leukocyte Esterase,Urine Negative (Negative); Nitrite,Urine Negative (Negative); Protein,Urine Negative (Negative); Specific Gravity,Urine 1.009 (1.001-1.035); Urobilinogen,Urine <2.0 mg/dL (<2.0)
--- NOTE | 2018-09-15 14:33 | ED ---
General Adult HPI - General Chief complaint: Abdominal Pain Stated complaint: Cannot Urinate Time Seen by Provider: 09/15/18 13:15 Source: patient Mode of arrival: ambulatory Limitations: no limitations - History of Present Illness Initial comments: 77-year-old female patient presents to the emergency department today with chief complaint of urinary retention. Patient states that last evening she started feeling like she was retaining urine. States she Feeling the urge to urinate but was unable to. States that the sensation worsened today. She denies any history of similar symptoms. States she has been sick with upper respiratory symptoms for the last couple of days. States her physician did start her on azithromycin and she is taking an [id number] cold medication. She denies any fevers or chills with this. She is not having any abdominal pain other than the urge to urinate. Denies any hematuria. Patient denies any recent rash, shortness breath, chest pain, nausea, vomiting, diarrhea , constipation, back pain, numbness, tingling, dizziness, weakness, headache, visual changes, or any other complaints. - Related Data Home Medications Medication Instructions Recorded Confirmed Aspirin 81 mg PO HS 04/17/17 04/17/17 Calcium Carbonate/Vitamin D3 1 cap PO AC-LUNCH 04/17/17 04/17/17 [Calcium 600-Vit D3 400 Caplet] Cyanocobalamin (Vitamin B-12) 1,000 mcg PO AC-LUNCH 04/17/17 04/17/17 [Vitamin B-12] Ferrous Sulfate [Iron (65 MG 325 mg PO AC-LUNCH 04/17/17 04/17/17 Elemental)] Levothyroxine Sodium [Synthroid] 50 mcg PO DAILY 04/17/17 04/17/17 Lisinopril-Hctz 20-25 mg 0.5 tab PO DAILY 04/17/17 04/17/17 [Zestoretic 20-25] Previous Rx's Medication Instructions Recorded Atorvastatin [Lipitor] 80 mg PO DAILY #30 tab 04/19/17 Metoprolol Tartrate [Lopressor] 25 mg PO TID #90 tab 04/19/17 Allergies Allergy/AdvReac Type Severity Reaction Status Date / Time losartan Allergy Rash/Hives Verified 09/15/18 12:49 Review of Systems ROS Statement: Those systems with pertinent positive or pertinent negative responses have been documented in the HPI. ROS Other: All systems not noted in ROS Statement are negative. Past Medical History Past Medical History: Hyperlipidemia, Hypertension, Thyroid Disorder Additional Past Medical History / Comment(s): palpitations History of Any Multi-Drug Resistant Organisms: None Reported Past Surgical History: No Surgical Hx Reported Additional Past Surgical History / Comment(s): catarct surgery Past Psychological History: No Psychological Hx Reported Smoking Status: Former smoker Past Alcohol Use History: None Reported Past Drug Use History: None Reported - Past Family History Father Family Medical History: Hypertension Mother Additional Family Medical History / Comment(s): palpitations, heart flutter General Exam Limitations: no limitations General appearance: alert, in no apparent distress, other (This is a well- developed, well-nourished elderly female patient in no acute distress. Vital signs upon presentation are temperature 98.1F, pulse 67, respirations 20, blood pressure 189/86, pulse ox 99% on room air.) Eye exam: Present: normal appearance, PERRL, EOMI. Absent: scleral icterus, conjunctival injection, periorbital swelling ENT exam: Present: normal exam, normal oropharynx, mucous membranes moist Respiratory exam: Present: normal lung sounds bilaterally. Absent: respiratory distress, wheezes, rales, rhonchi, stridor Cardiovascular Exam: Present: regular rate, normal rhythm, normal heart sounds. Absent: systolic murmur, diastolic murmur, rubs, gallop, clicks GI/Abdominal exam: Present: soft, normal bowel sounds. Absent: distended, tenderness, guarding, rebound, rigid Neurological exam: Present: alert, oriented X3, CN II-XII intact Psychiatric exam: Present: normal affect, normal mood Skin exam: Present: warm, dry, intact, normal color. Absent: rash Course Vital Signs 09/15/18 09/15/18 12:47 15:12 Temperature 98.1 F 98.1 F Pulse Rate 67 65 Respiratory 20 20 Rate Blood Pressure 189/86 176/80 O2 Sat by Pulse 99 99 Oximetry Medical Decision Making - Medical Decision Making 77-year-old female patient presents to the emergency department today for evaluation of urinary retention. Physical examination did reveal soft, nontender abdomen. Ogden catheter had been placed prior to my entrance into the room, patient did have output of approximately 400 mL of clear yellow urine. This was sent for urinalysis, showed no evidence of infection. Patient denies history of urinary retention. Patient is currently being treated for upper respiratory infection and is taking [id number] cold medication including chlorpheniramine and dextromethorphan. It is felt that patient's urinary retention may be related to use of this medication. She is instructed to discontinue this. Ogden catheter was discontinued. She is instructed to return immediately should she have no urine output for the next 6-8 hours. She is instructed to follow-up with her primary care physician for recheck in 1-2 days. Return parameters were discussed in detail. She verbalizes understanding and agrees with this plan. - Lab Data Lab Results 09/15/18 Range/Units 13:00 Urine Color Yellow Urine Appearance Clear (Clear) Urine pH 6.0 (5.0-8.0) Ur Specific [place] 1.009 (1.001-1.035) Urine Protein Negative (Negative) Urine Glucose (UA) Negative (Negative) Urine Ketones Negative (Negative) Urine Blood Negative (Negative) Urine Nitrite Negative (Negative) Urine Bilirubin Negative (Negative) Urine Urobilinogen <2.0 (<2.0) mg/dL Ur Leukocyte Esterase Negative (Negative) Disposition Clinical Impression: Urinary retention Disposition: HOME SELF-CARE Condition: Good Instructions: Acute Urinary Retention in Women (ED) Additional Instructions: Stop taking the cold medication. You can continue your azithromycin. Increase fluids. Return to emergency department if you have not urinated in the next 6-8 hours. Follow up with your primary care physician for recheck in 1-2 days. Return immediately for any other new, worsening, or concerning symptoms. Is patient prescribed a controlled substance at d/c from ED?: No Referrals: Arpit Ramey DO [Primary Care Provider] - 1-2 days Time of Disposition: 15:00
[2018-09-15 15:13] VITALS: BP 176/80; PULSE 65
== END 2018-09-15 15:19 | disposition home or self-care (01) ==
LOC: EC 12:44
DX: R33.9 Retention of urine, unspecified (principal); R10.9 Unspecified abdominal pain; I10 Essential (primary) hypertension; Z79.82 Long term (current) use of aspirin; Z79.899 Other long term (current) drug therapy; Z88.8 Allergy status to other drugs, medicaments and biological substances; Z87.891 Personal history of nicotine dependence
CPT/HCPCS: 81003; 99284

== ENCOUNTER 2018-09-16 05:26 | Inpatient (IN) | payer MEDICARE ==
--- NOTE | 2018-09-16 07:40 | XR ---
EXAMINATION TYPE: XR KUB DATE OF EXAM: 09/16/2018 7:35 AM CLINICAL HISTORY: Vomiting for 4 days. TECHNIQUE: Two Upright KUB images of the abdomen are obtained. COMPARISON: Abdominal x-ray March 19, 2011 FINDINGS: Some paucity of bowel gas is seen on current study. Gas is noted in nondistended stomach as well as small and large bowel loops scattered throughout the abdomen and pelvis. Colonic interpositi on right upper quadrant is redemonstrated. There is persistent patchy left basilar opacity. Scoliosis in the mid to lower lumbar spine is again seen. No pneumoperitoneum is identified. No suspicious hari cifications are seen. Mild to moderate spurring and axial joint space loss in both hips is redemonstr ated. IMPRESSION: Overall nonspecific but favor nonobstructive bowel gas pattern. Patchy left basilar atelectasis and/o r infiltrate is noted. Correlate clinically.
[2018-09-16 07:54] LABS: Albumin 4.1 g/dL (3.5-5.0); Calcium 9.3 mg/dL (8.4-10.2); Potassium 4.5 mmol/L (3.5-5.1); Total Bilirubin 1.4 mg/dL (0.2-1.3)
[2018-09-16 07:59] LABS: Basophils % (A) 0 %; Eosinophils # (A) 0.1 k/uL (0-0.7); Eosinophils % (A) 2 %; HCT 29.1 % (34.0-46.0); HGB 10.3 gm/dL (11.4-16.0); Lymphocytes # (A) 1.4 k/uL (1.0-4.8); Lymphocytes % (A) 19 %; MCH 31.6 pg (25.0-35.0); MCHC 35.4 g/dL (31.0-37.0); Mean Platelet Volume 7.8; Monocytes # (A) 0.6 k/uL (0-1.0); Monocytes % (A) 9 %; Neutrophils # (A) 5.1 k/uL (1.3-7.7); Neutrophils % (A) 69 %; Platelet Count 188 k/uL (150-450); RBC 3.26 m/uL (3.80-5.40); RDW 12.8 % (11.5-15.5); WBC 7.4 k/uL (3.8-10.6)
[2018-09-16 08:01] LABS: MCV 89.3 fL (80.0-100.0)
[2018-09-16] MEDS ORDERED: SODIUM CHLORIDE 0.9% 500 ML 500 ML IV ONE (08:25)
[2018-09-16] MEDS: SODIUM CHLORIDE 0.9% 1,000 ML IV SCH ×2 (08:37→20:49)
[2018-09-16 09:11] LABS: Appearance,Urine Clear (Clear); Bacteria,Urine Occasional /hpf; Bilirubin,Urine Negative (Negative); Blood,Urine Negative (Negative); Color,Urine Light Yellow; Glucose,Urine (UA) Negative (Negative); Ketones,Urine Negative (Negative); Leukocyte Esterase,Urine Large (Negative); Mucus,Urine Rare /hpf; Nitrite,Urine Negative (Negative); Protein,Urine Negative (Negative); RBC,Urine 1 /hpf (0-5); Specific Gravity,Urine 1.008 (1.001-1.035); Urobilinogen,Urine <2.0 mg/dL (<2.0); WBC,Urine 4 /hpf (0-5)
[2018-09-16] MEDS ORDERED: NALOXONE 0.4 MG/ML 1 ML VIAL IV PRN (10:37)
--- NOTE | 2018-09-16 10:44 | ED ---
General Adult HPI - General Chief complaint: Urogenital Stated complaint: Recheck, Urinary Retention Time Seen by Provider: 09/16/18 05:55 Source: patient, RN notes reviewed, old records reviewed Mode of arrival: ambulatory Limitations: no limitations - History of Present Illness Initial comments: 78-year-old female presents for evaluation of urinary retention. This is patient's second ER visit with symptoms of urinary retention. She had a Ogden catheter removed yesterday which was in place for retention. No fever or chills. No flank pain. No chest pain or dyspnea. Mild lower abdominal pain. No upper abdominal pain. - Related Data Home Medications Medication Instructions Recorded Confirmed Aspirin 81 mg PO HS 04/17/17 09/16/18 Calcium Carbonate/Vitamin D3 1 cap PO AC-LUNCH 04/17/17 09/16/18 [Calcium 600-Vit D3 400 Caplet] Cyanocobalamin (Vitamin B-12) 1,000 mcg PO AC-LUNCH 04/17/17 09/16/18 [Vitamin B-12] Ferrous Sulfate [Iron (65 MG 325 mg PO AC-LUNCH 04/17/17 09/16/18 Elemental)] Levothyroxine Sodium [Synthroid] 50 mcg PO DAILY 04/17/17 09/16/18 Lisinopril-Hctz 20-25 mg 0.5 tab PO DAILY 04/17/17 09/16/18 [Zestoretic 20-25] Previous Rx's Medication Instructions Recorded Atorvastatin [Lipitor] 80 mg PO DAILY #30 tab 04/19/17 Metoprolol Tartrate [Lopressor] 25 mg PO TID #90 tab 04/19/17 Allergies Allergy/AdvReac Type Severity Reaction Status Date / Time losartan Allergy Rash/Hives Verified 09/16/18 09:24 Review of Systems ROS Statement: Those systems with pertinent positive or pertinent negative responses have been documented in the HPI. ROS Other: All systems not noted in ROS Statement are negative. Past Medical History Past Medical History: Hyperlipidemia, Hypertension, Thyroid Disorder Additional Past Medical History / Comment(s): palpitations History of Any Multi-Drug Resistant Organisms: None Reported Past Surgical History: No Surgical Hx Reported Additional Past Surgical History / Comment(s): catarct surgery Past Psychological History: No Psychological Hx Reported Smoking Status: Former smoker Past Alcohol Use History: None Reported Past Drug Use History: None Reported - Past Family History Father Family Medical History: Hypertension Mother Additional Family Medical History / Comment(s): palpitations, heart flutter General Exam Limitations: no limitations General appearance: alert, in no apparent distress Head exam: Present: atraumatic, normocephalic Eye exam: Present: normal appearance, PERRL ENT exam: Present: normal exam Neck exam: Present: normal inspection. Absent: tenderness, meningismus Respiratory exam: Present: normal lung sounds bilaterally. Absent: respiratory distress, wheezes Cardiovascular Exam: Present: regular rate, normal rhythm GI/Abdominal exam: Present: soft. Absent: distended, tenderness Extremities exam: Present: normal inspection, normal capillary refill. Absent: pedal edema Neurological exam: Present: alert, oriented X3, CN II-XII intact. Absent: motor sensory deficit Psychiatric exam: Present: normal affect, normal mood Course Vital Signs 09/16/18 09/16/18 09/16/18 05:34 08:42 08:50 Temperature 98.1 F Pulse Rate 64 66 Respiratory 18 16 Rate Blood Pressure 153/73 119/35 O2 Sat by Pulse 96 99 100 Oximetry 09/16/18 09:00 Temperature Pulse Rate 79 Respiratory 18 Rate Blood Pressure 119/35 O2 Sat by Pulse 100 Oximetry EKG Findings - EKG Comments: EKG Findings:: EKG: Normal sinus rhythm, T-wave inversion throughout both the inferior and precordial leads. No ST segment elevation ventricular rate is 64, MO interval 200, QRS duration 92, QTC 468, T-wave inversion is unchanged from previous EKG in March 2017. Medical Decision Making - Medical Decision Making 78-year-old female presenting with urinary retention. Ogden catheter was reinserted in the emergency department. Basic laboratory studies are obtained to check kidney function, this does reveal sodium of 116. Patient's denies any medication changes. Denies confusion or seizure activity. Denies palpitations. Patient's has full catheter inserted, she is started on normal saline. She will be admitted with nephrology on consult for hyponatremia. Case discussed with Dr. Nova who will accept admission. - Lab Data Result diagrams: 09/16/18 07:24 09/16/18 07:24 Lab Results 09/16/18 09/16/18 09/16/18 Range/Units 07:24 07:24 08:48 WBC 7.4 (3.8-10.6) k/uL RBC 3.26 L (3.80-5.40) m/uL Hgb 10.3 L (11.4-16.0) gm/dL Hct 29.1 L (34.0-46.0) % MCV 89.3 D (80.0-100.0) fL MCH 31.6 (25.0-35.0) pg MCHC 35.4 (31.0-37.0) g/dL RDW 12.8 (11.5-15.5) % Plt Count 188 (150-450) k/uL Neutrophils % 69 % Lymphocytes % 19 % Monocytes % 9 % Eosinophils % 2 % Basophils % 0 % Neutrophils # 5.1 (1.3-7.7) k/uL Lymphocytes # 1.4 (1.0-4.8) k/uL Monocytes # 0.6 (0-1.0) k/uL Eosinophils # 0.1 (0-0.7) k/uL Basophils # 0.0 (0-0.2) k/uL Sodium 116 L* (137-145) mmol/L Potassium 4.5 (3.5-5.1) mmol/L Chloride 81 L (98-107) mmol/L Carbon Dioxide 24 (22-30) mmol/L Anion Gap 11 mmol/L BUN 14 (7-17) mg/dL Creatinine 0.87 (0.52-1.04) mg/dL Est GFR (CKD-EPI)AfAm 73 (>60 ml/min/1.73 sqM) Est GFR (CKD-EPI)NonAf 63 (>60 ml/min/1.73 sqM) Glucose 114 H (74-99) mg/dL Calcium 9.3 (8.4-10.2) mg/dL Total Bilirubin 1.4 H (0.2-1.3) mg/dL AST 51 H (14-36) U/L ALT 47 (9-52) U/L Alkaline Phosphatase 100 (38-126) U/L Total Protein 7.0 (6.3-8.2) g/dL Albumin 4.1 (3.5-5.0) g/dL Urine Color Light Yellow Urine Appearance Clear (Clear) Urine pH 6.0 (5.0-8.0) Ur Specific [place] 1.008 (1.001-1.035) Urine Protein Negative (Negative) Urine Glucose (UA) Negative (Negative) Urine Ketones Negative (Negative) Urine Blood Negative (Negative) Urine Nitrite Negative (Negative) Urine Bilirubin Negative (Negative) Urine Urobilinogen <2.0 (<2.0) mg/dL Ur Leukocyte Esterase Large H (Negative) Urine RBC 1 (0-5) /hpf Urine WBC 4 (0-5) /hpf Urine Bacteria Occasional H (None) /hpf Urine Mucus Rare H (None) /hpf Disposition Clinical Impression: Urinary retention, Hyponatremia Disposition: ADMITTED IP TO THIS HOSP Condition: Stable Is patient prescribed a controlled substance at d/c from ED?: No Referrals: Arpit Ramey DO [Primary Care Provider] - 1-2 days Decision to Admit Reason: Admit from EC Decision Date: 09/16/18 Decision Time: 10:43
--- NOTE | 2018-09-16 16:39 | P.HPIM ---
History of Present Illness Patient came to ER for urinary retention patient's Ogden catheter was removed yesterday was sent home comes back with urinary retention again. Patient incidentally found to have severe hyponatremia with serum sodium of 111 patient the previous serum sodium few months ago is 134 and normal. Patient has normal kidney function. Patient has been drinking lots of water last night but that's only last night patient the is presently on diuretic therapy which is hydrochlorothiazide. Patient does have history of hypothyroidism. Is not on any medications that can cause SIADH. Patient used to be a smoker quit smoking 37 years ago. And had diarrhea one day last week. Denied any nausea vomiting. Review of Systems REVIEW OF SYSTEMS: CONSTITUTIONAL: No fever, no malaise, no fatigue. HEENT: No recent visual problems or hearing problems. Denied any sore throat. CARDIOVASCULAR: No chest pain, orthopnea, PND, no palpitations, no syncope. PULMONARY: No shortness of breath, no cough, no hemoptysis. GASTROINTESTINAL: No diarrhea, no nausea, no vomiting, no abdominal pain. NEUROLOGICAL: No headaches, no weakness, no numbness. HEMATOLOGICAL: Denies any bleeding or petechiae. GENITOURINARY: Denies any burning micturition, frequency, or urgency. MUSCULOSKELETAL/RHEUMATOLOGICAL: Denies any joint pain, swelling, or any muscle pain. ENDOCRINE: Denies any polyuria or polydipsia. The rest of the 14-point review of systems is negative. Past Medical History Past Medical History: Hyperlipidemia, Hypertension, Thyroid Disorder Additional Past Medical History / Comment(s): palpitations History of Any Multi-Drug Resistant Organisms: None Reported Past Surgical History: No Surgical Hx Reported Additional Past Surgical History / Comment(s): catarct surgery Past Psychological History: No Psychological Hx Reported Smoking Status: Former smoker Past Alcohol Use History: None Reported Past Drug Use History: None Reported - Past Family History Father Family Medical History: Hypertension Mother Additional Family Medical History / Comment(s): palpitations, heart flutter Medications and Allergies Home Medications Medication Instructions Recorded Confirmed Type Aspirin 81 mg PO HS 04/17/17 09/16/18 History Calcium Carbonate/Vitamin D3 1 cap PO AC-LUNCH 04/17/17 09/16/18 History [Calcium 600-Vit D3 400 Caplet] Cyanocobalamin (Vitamin B-12) 1,000 mcg PO AC-LUNCH 04/17/17 09/16/18 History [Vitamin B-12] Ferrous Sulfate [Iron (65 MG 325 mg PO AC-LUNCH 04/17/17 09/16/18 History Elemental)] Levothyroxine Sodium [Synthroid] 50 mcg PO DAILY 04/17/17 09/16/18 History Lisinopril-Hctz 20-25 mg 0.5 tab PO DAILY 04/17/17 09/16/18 History [Zestoretic 20-25] Atorvastatin [Lipitor] 80 mg PO DAILY #30 tab 04/19/17 09/16/18 Rx Metoprolol Tartrate [Lopressor] 25 mg PO TID #90 tab 04/19/17 09/16/18 Rx Allergies Allergy/AdvReac Type Severity Reaction Status Date / Time losartan Allergy Rash/Hives Verified 09/16/18 09:24 Physical Exam Vitals: Vital Signs Temp Pulse Pulse Resp BP BP Pulse Ox 09/16/18 14:41 98.7 F 68 16 134/62 100 09/16/18 14:00 97.9 F 70 18 113/57 96 09/16/18 13:00 69 16 115/90 96 09/16/18 12:00 64 16 137/59 99 09/16/18 11:24 97.9 F 69 16 157/81 98 09/16/18 11:00 66 16 119/77 97 09/16/18 10:00 65 16 133/64 99 09/16/18 09:00 79 18 119/35 100 09/16/18 08:50 66 16 119/35 100 09/16/18 08:42 99 09/16/18 05:34 98.1 F 64 18 153/73 96 Intake and Output 09/16/18 09/16/18 09/16/18 06:59 14:59 22:59 Output Total 283 300 Balance -283 -300 Output: Urine 300 Uretheral (Ogden) 300 Post Void Residual 283 Other: Voiding Method Toilet Weight 81.647 kg PHYSICAL EXAMINATION: GENERAL: The patient is alert and oriented x3, not in any acute distress. Well developed, well nourished. HEENT: Pupils are round and equally reacting to light. EOMI. No scleral icterus. No conjunctival pallor. Normocephalic, atraumatic. No pharyngeal erythema. No thyromegaly. CARDIOVASCULAR: S1 and S2 present. No murmurs, rubs, or gallops. PULMONARY: Chest is clear to auscultation, no wheezing or crackles. ABDOMEN: Soft, nontender, nondistended, normoactive bowel sounds. No palpable organomegaly. MUSCULOSKELETAL: No joint swelling or deformity. EXTREMITIES: No cyanosis, clubbing, or pedal edema. NEUROLOGICAL: Gross neurological examination did not reveal any focal deficits. SKIN: No rashes. Results CBC & Chem 7: 09/16/18 07:24 09/16/18 07:24 Labs: Abnormal Lab Results - Last 24 Hours (Table) 09/16/18 09/16/18 09/16/18 Range/Units 07:24 07:24 08:48 RBC 3.26 L (3.80-5.40) m/uL Hgb 10.3 L (11.4-16.0) gm/dL Hct 29.1 L (34.0-46.0) % Sodium 116 L* (137-145) mmol/L Chloride 81 L (98-107) mmol/L Glucose 114 H (74-99) mg/dL Total Bilirubin 1.4 H (0.2-1.3) mg/dL AST 51 H (14-36) U/L Ur Leukocyte Esterase Large H (Negative) Urine Bacteria Occasional H (None) /hpf Urine Mucus Rare H (None) /hpf Thrombosis Risk Factor Assmnt - Choose All That Apply Any of the Below Risk Factors Present?: Yes Each Factor Represents 1 point: Obesity (BMI >25) Other Risk Factors: Yes Each Risk Factor Represents 3 Points: Age 75 years or older Thrombosis Risk Factor Assessment Total Risk Factor Score: 4 Thrombosis Risk Factor Assessment Level: Moderate Risk Assessment and Plan Plan: -Hyponatremia: Patient may have multifactorial hyponatremia including hypovolemic hyponatremia and SIADH from urinary retention cannot be ruled out. We will obtain urine random sodium urine random creatinine, serum and urine os molality. We will obtain renal ultrasound counseling her urinary retention. Patient will be continued on IV fluids will obtain a TSH in the speedometer inspector serum cortisol as well. Hold off on diuretic therapy. Patient is asymptomatic from hyponatremia probably subacute to chronic hyponatremia -Hypothyroidism: TSH is being obtained continue with levothyroxine -hyperlipidemia -Hypertension Urinary retention: Consult urology patient presently has fully catheter
[2018-09-16] MEDS: METOPROLOL TARTRATE 25 MG TAB PO SCH ×2 (16:57→20:49)
--- NOTE | 2018-09-16 17:01 | US ---
EXAMINATION TYPE: US kidneys/renal and bladder DATE OF EXAM: 09/16/2018 COMPARISON: NONE CLINICAL HISTORY: urinary retention. EXAM MEASUREMENTS: Right Kidney: 10.1 x 4.4 x 4.1 cm Left Kidney: 9.2 x 5.2 x 4.6 cm Right Kidney: No hydronephrosis or masses seen Left Kidney: No hydronephrosis or masses seen Bladder: Not distended, patient has johnson There is no evidence for hydronephrosis at this point in time. No nephrolithiasis is seen. No lenka s are identified. IMPRESSION: No evidence of renal mass or obstruction. Bladder was empty during the exam.
[2018-09-16 17:35] LABS: Creatinine,Urine Random 73.7 mg/dL
[2018-09-16] MEDS: ASPIRIN 81 MG PO SCH (20:49)
[2018-09-16] MEDS: HEPARIN SODIUM,PORCINE 5,000 UNIT/ML 1 ML VIAL SQ SCH (20:49)
[2018-09-17] MEDS: LEVOTHYROXINE 50 MCG TAB PO SCH (06:55)
[2018-09-17 07:55] LABS: Calcium 8.8 mg/dL (8.4-10.2); Potassium 4.3 mmol/L (3.5-5.1)
[2018-09-17] MEDS: METOPROLOL TARTRATE 25 MG TAB PO SCH ×3 (08:58→21:02)
[2018-09-17] MEDS: ATORVASTATIN 80 MG TAB PO SCH (08:58)
[2018-09-17] MEDS: SODIUM CHLORIDE 0.9% 1,000 ML IV SCH (08:59)
[2018-09-17] MEDS: HEPARIN SODIUM,PORCINE 5,000 UNIT/ML 1 ML VIAL SQ SCH ×2 (08:59→21:02)
--- NOTE | 2018-09-17 11:25 | P.PN ---
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 Nephrology and urology will evaluate the patient. Ultrasound of the kidney did not show any obstruction. She is feeling much better today Constitutional: Denied any fatigue denied any fever. Cardio vascular: denied any chest pain, palpitations Gastrointestinal denied any nausea vomiting Pulmonary: Denied any shortness of breath cough Neurologic denied any new focal deficits All inpatient medications were reviewed and appropriate changes in these medications as dictated in the interval history and assessment and plan. Objective - Vital Signs Vital signs: Vital Signs Temp 98.2 F 09/17/18 09:02 Pulse 67 09/17/18 09:02 Resp 16 09/17/18 09:02 BP 142/60 09/17/18 09:02 Pulse Ox 99 09/17/18 09:02 Intake & Output 09/16/18 09/17/18 09/17/18 18:59 06:59 18:59 Intake Total 240 50 480 Output Total 300 2100 Balance -60 480 Weight 83.7 kg Intake: Intake, IV Titration 50 Amount Sodium Chloride 0.9% 1, 50 000 ml @ 100 mls/hr IV . Q10H [facility] Rx#:[id number] Oral 240 480 Output: Urine 300 2100 Uretheral (Ogden) 300 Other: Voiding Method Indwelling Catheter Indwelling Catheter - Exam PHYSICAL EXAMINATION: GENERAL: The patient is alert and oriented x3, not in any acute distress. Well developed, well nourished. HEENT: Pupils are round and equally reacting to light. EOMI. No scleral icterus. No conjunctival pallor. Normocephalic, atraumatic. No pharyngeal erythema. No thyromegaly. CARDIOVASCULAR: S1 and S2 present. No murmurs, rubs, or gallops. PULMONARY: Chest is clear to auscultation, no wheezing or crackles. ABDOMEN: Soft, nontender, nondistended, normoactive bowel sounds. No palpable organomegaly. MUSCULOSKELETAL: No joint swelling or deformity. EXTREMITIES: No cyanosis, clubbing, or pedal edema. NEUROLOGICAL: Gross neurological examination did not reveal any focal deficits. SKIN: No rashes. - Labs CBC & Chem 7: 09/16/18 07:24 09/17/18 06:26 Labs: Abnormal Lab Results - Last 24 Hours (Table) 09/16/18 09/17/18 Range/Units 07:30 06:26 Sodium 124 L (137-145) mmol/L Chloride 93 L (98-107) mmol/L Osmolality 236 L* (280-301) mosm/kg Assessment and Plan Plan: -Hyponatremia: Patient may have multifactorial hyponatremia including hypovolemic hyponatremia and SIADH from urinary retention him improving nephrology and neurology will evaluate the patient TSH and serum cortisol levels are essentially within normal limits -Hypothyroidism: continue with levothyroxine -hyperlipidemia -Hypertension Urinary retention: Consult urology patient presently has a Ogden catheter
[2018-09-17 11:40] LABS: Glucose,Whole Blood 161 mg/dL (75-99)
--- NOTE | 2018-09-17 11:45 | P.NPCON ---
History of Present Illness - Reason for Consult hyponatremia - Chief Complaint Abnormal labs with low sodium - History of Present Illness Came to the ER for urinary retention Ogden catheter was placed and she was discharged home. She came back with not feeling well and his sodium was 116. She has a baseline serum sodium of 132-134. She takes hydrochlorothiazide at home. Denies nausea vomiting diarrhea. Denies drinking a lot of liquids. But she drinks decaf. No history of malignancy or antipsychotic and antidepressant medication use. She was started on IV fluids sodium improved to 124. She still has Ogden catheter draining good amount of urine. As per the little bit sleepy today. Review of Systems Constitutional: Reports as per HPI Past Medical History Past Medical History: Hyperlipidemia, Hypertension, Thyroid Disorder Additional Past Medical History / Comment(s): palpitations History of Any Multi-Drug Resistant Organisms: None Reported Past Surgical History: No Surgical Hx Reported Additional Past Surgical History / Comment(s): catarct surgery Past Psychological History: No Psychological Hx Reported Smoking Status: Former smoker Past Alcohol Use History: None Reported Past Drug Use History: None Reported - Past Family History Father Family Medical History: Hypertension Mother Additional Family Medical History / Comment(s): palpitations, heart flutter Medications and Allergies Home Medications Medication Instructions Recorded Confirmed Type Aspirin 81 mg PO HS 04/17/17 09/16/18 History Calcium Carbonate/Vitamin D3 1 cap PO AC-LUNCH 04/17/17 09/16/18 History [Calcium 600-Vit D3 400 Caplet] Cyanocobalamin (Vitamin B-12) 1,000 mcg PO AC-LUNCH 04/17/17 09/16/18 History [Vitamin B-12] Ferrous Sulfate [Iron (65 MG 325 mg PO AC-LUNCH 04/17/17 09/16/18 History Elemental)] Levothyroxine Sodium [Synthroid] 50 mcg PO DAILY 04/17/17 09/16/18 History Lisinopril-Hctz 20-25 mg 0.5 tab PO DAILY 04/17/17 09/16/18 History [Zestoretic 20-25] Atorvastatin [Lipitor] 80 mg PO DAILY #30 tab 04/19/17 09/16/18 Rx Metoprolol Tartrate [Lopressor] 25 mg PO TID #90 tab 04/19/17 09/16/18 Rx Allergies Allergy/AdvReac Type Severity Reaction Status Date / Time losartan Allergy Rash/Hives Verified 09/16/18 09:24 Physical Exam Vitals: Vital Signs Temp Pulse Pulse Resp BP BP Pulse Ox 09/17/18 09:02 98.2 F 67 16 142/60 99 09/17/18 04:00 97.8 F 65 17 147/67 100 09/17/18 03:16 65 17 09/16/18 23:59 98.1 F 61 17 134/61 100 09/16/18 20:00 98.1 F 66 17 135/71 98 09/16/18 14:41 98.7 F 68 16 134/62 100 09/16/18 14:00 97.9 F 70 18 113/57 96 09/16/18 13:00 69 16 115/90 96 09/16/18 12:00 64 16 137/59 99 Intake and Output 09/16/18 09/17/18 09/17/18 22:59 06:59 14:59 Intake Total 290 480 Output Total 2100 Balance 290 -2100 480 Intake: Intake, IV Titration 50 Amount Sodium Chloride 0.9% 1, 50 000 ml @ 100 mls/hr IV . 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 #2 urinary retention status post Ogden catheter #3 normal renal function #4 hypertension Plan: #1 goal sodium improvement is 6-9 in 24 hours. She improved 8 in the last 24 hours. Stop fluids repeat labs again today. If stable repeat in the morning. #2 agree with stopping hydrochlorothiazide. #3 continue with atenolol for blood pressure management for now goal is less than 140/90 if still persistent add calcium channel elen. Thank you very much for this consultation we will follow along while she is in the hospital
--- NOTE | 2018-09-17 11:45 | P.GSCN ---
History of Present Illness Consult date: 09/17/18 History of present illness: The patient is an 78-year-old female admitted the hospital for urinary retention as well as hyponatremia. The patient was in the emergency room recently for the same problem. Etiology of her urinary retention is been unclear. She states over the last year she's been having increasing difficulty with urination. She'll have to wait to urinate frequently. She does notice that constipation aggravates her ability to urinate. She recently has also taken a cold preparation for running sinus that could've aggravated her retention. She has no major back issues. She does have periodic constipation. She is on no other medication that could contribute to her problem. Review of Systems - Constitutional Reports chronic pain, Reports weakness - EENT Ears, nose, mouth and throat: Reports sinus pain, Reports sinus pressure - Genitourinary Genitourinary: Reports as per HPI Past Medical History Past Medical History: Hyperlipidemia, Hypertension, Thyroid Disorder Additional Past Medical History / Comment(s): palpitations History of Any Multi-Drug Resistant Organisms: None Reported Past Surgical History: No Surgical Hx Reported Additional Past Surgical History / Comment(s): catarct surgery Past Psychological History: No Psychological Hx Reported Smoking Status: Former smoker Past Alcohol Use History: None Reported Past Drug Use History: None Reported - Past Family History Father Family Medical History: Hypertension Mother Additional Family Medical History / Comment(s): palpitations, heart flutter Medications and Allergies Home Medications Medication Instructions Recorded Confirmed Type Aspirin 81 mg PO HS 04/17/17 09/16/18 History Calcium Carbonate/Vitamin D3 1 cap PO AC-LUNCH 04/17/17 09/16/18 History [Calcium 600-Vit D3 400 Caplet] Cyanocobalamin (Vitamin B-12) 1,000 mcg PO AC-LUNCH 04/17/17 09/16/18 History [Vitamin B-12] Ferrous Sulfate [Iron (65 MG 325 mg PO AC-LUNCH 04/17/17 09/16/18 History Elemental)] Levothyroxine Sodium [Synthroid] 50 mcg PO DAILY 04/17/17 09/16/18 History Lisinopril-Hctz 20-25 mg 0.5 tab PO DAILY 04/17/17 09/16/18 History [Zestoretic 20-25] Atorvastatin [Lipitor] 80 mg PO DAILY #30 tab 04/19/17 09/16/18 Rx Metoprolol Tartrate [Lopressor] 25 mg PO TID #90 tab 04/19/17 09/16/18 Rx Allergies Allergy/AdvReac Type Severity Reaction Status Date / Time losartan Allergy Rash/Hives Verified 09/16/18 09:24 Surgical - Exam Vital Signs Temp Pulse Resp BP Pulse Ox 98.1 F 64 18 153/73 96 09/16/18 05:34 09/16/18 05:34 09/16/18 05:34 09/16/18 05:34 09/16/18 05:34 - General well developed, well nourished, no distress - Eyes PERRL - ENT no hearing loss - Neck trachea midline - Respiratory normal expansion, normal respiratory effort - Cardiovascular Rhythm: regular - Abdomen Abdomen: soft, non tender - Genitourinary The was present in the room. A bimanual pelvic examination identifies no mass cystocele or rectocele. There is an indwelling catheter - Integumentary no rash, no growths - Neurologic normal coordination, normal sensation - Musculoskeletal normal posture - Psychiatric oriented to time, oriented to person, oriented to place, speech is normal, memory intact Results - Labs 09/16/18 07:24 09/17/18 06:26 Abnormal Lab Results - Last 24 Hours (Table) 09/16/18 09/17/18 09/17/18 Range/Units 07:30 06:26 11:39 Sodium 124 L (137-145) mmol/L Chloride 93 L (98-107) mmol/L POC Glucose (mg/dL) 161 H (75-99) mg/dL Osmolality 236 L* (280-301) mosm/kg Diabetes panel 09/17/18 Range/Units 06:26 Sodium 124 L (137-145) mmol/L Potassium 4.3 (3.5-5.1) mmol/L Chloride 93 L (98-107) mmol/L Carbon Dioxide 24 (22-30) mmol/L BUN 13 (7-17) mg/dL Creatinine 0.84 (0.52-1.04) mg/dL Glucose 87 (74-99) mg/dL Calcium 8.8 (8.4-10.2) mg/dL Thyroid panel 09/16/18 Range/Units 07:30 TSH 2.580 (0.465-4.680) mIU/L Calcium panel 09/17/18 Range/Units 06:26 Calcium 8.8 (8.4-10.2) mg/dL Pituitary panel 09/16/18 09/17/18 Range/Units 07:30 06:26 Sodium 124 L (137-145) mmol/L Potassium 4.3 (3.5-5.1) mmol/L Chloride 93 L (98-107) mmol/L Carbon Dioxide 24 (22-30) mmol/L BUN 13 (7-17) mg/dL Creatinine 0.84 (0.52-1.04) mg/dL Glucose 87 (74-99) mg/dL Calcium 8.8 (8.4-10.2) mg/dL TSH 2.580 (0.465-4.680) mIU/L Adrenal panel 09/17/18 Range/Units 06:26 Sodium 124 L (137-145) mmol/L Potassium 4.3 (3.5-5.1) mmol/L Chloride 93 L (98-107) mmol/L Carbon Dioxide 24 (22-30) mmol/L BUN 13 (7-17) mg/dL Creatinine 0.84 (0.52-1.04) mg/dL Glucose 87 (74-99) mg/dL Calcium 8.8 (8.4-10.2) mg/dL Assessment and Plan Assessment: Impression: Urine retention of indeterminate etiology, 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 When the patient's hyponatremia is corrected I think he can remove the catheter for voiding trial. If she continues to have problems she probably will need an outpatient cystoscopy and urodynamic study.
[2018-09-17 16:31] LABS: Glucose,Whole Blood 153 mg/dL (75-99)
[2018-09-17] MEDS ORDERED: ACETAMINOPHEN TAB 325 MG TAB PO PRN (20:56)
[2018-09-17] MEDS: ASPIRIN 81 MG PO SCH (21:02)
[2018-09-18 00:58] VITALS: RESP 18
[2018-09-18] MEDS: LEVOTHYROXINE 50 MCG TAB PO SCH (06:42)
[2018-09-18 07:09] LABS: Calcium 8.5 mg/dL (8.4-10.2); Potassium 4.3 mmol/L (3.5-5.1)
[2018-09-18 08:52] VITALS: BP 144/63; PULSE 69; TEMP 98.5
[2018-09-18] MEDS: METOPROLOL TARTRATE 25 MG TAB PO SCH (08:53)
[2018-09-18] MEDS: ATORVASTATIN 80 MG TAB PO SCH (08:53)
[2018-09-18] MEDS: HEPARIN SODIUM,PORCINE 5,000 UNIT/ML 1 ML VIAL SQ SCH (08:54)
--- NOTE | 2018-09-18 11:04 | P.PN ---
Subjective Progress Note Date: 09/18/18 Seen and examined for the follow-up of hyponatremia. Feels better today no nausea vomiting diarrhea. Objective - Vital Signs Vital signs: Vital Signs Temp 98.5 F 09/18/18 08:00 Pulse 69 09/18/18 08:00 Resp 18 09/18/18 08:00 BP 144/63 09/18/18 08:00 Pulse Ox 98 09/18/18 08:00 Intake & Output 09/17/18 09/18/18 09/18/18 18:59 06:59 18:59 Intake Total 924 240 Output Total 1200 2300 Balance -276 -2059 Weight 82.5 kg Intake: Oral 924 240 Output: Urine 1200 2300 Other: Voiding Method Indwelling Catheter Indwelling Catheter - Exam Lying comfortable in no acute distress S1-S2 heard Lungs clear Edema - Labs CBC & Chem 7: 09/16/18 07:24 09/18/18 05:45 Labs: Abnormal Lab Results - Last 24 Hours (Table) 09/17/18 09/17/18 09/18/18 Range/Units 11:39 16:29 05:45 Sodium 129 L (137-145) mmol/L POC Glucose (mg/dL) 161 H 153 H (75-99) mg/dL Assessment and Plan Assessment: #1 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 #2 urinary retention status post Ogden catheter #3 normal renal function #4 hypertension Plan: #1 sodium stable close to baseline. #2 agree with stopping hydrochlorothiazide. Do not continue hydrochlorothiazide at discharge #3 currently on metoprolol 3 times a day, with bradycardia change it to twice a day and add low-dose amlodipine 5 mg daily for antihypertensive regimen. Stable from nephrology point of view for discharge to be followed up in the office in 2-3 weeks.
[2018-09-18] MEDS ORDERED: amLODIPine 5 MG TAB PO STA (11:05)
--- NOTE | 2018-09-18 11:13 | P.DS ---
Providers Date of admission: 09/16/18 10:37 Attending physician: Danilo Nova Consults: 09/16/18 10:37 Consult Physician Routine Consulting Provider: Josie Rogel Consult Reason/Comments: Hyponatremia Do you want consulting provider notified?: Yes 09/16/18 17:46 Consult Physician Routine Consulting Provider: Zach Huertas Reason/Comments: urinary retention Do you want consulting provider notified?: Yes [facility] Course: Patient is admitted for hyponatremia appears to be secondary to hypervolemic hyponatremia which improved with IV fluids along with some 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 Nephrology and urology will evaluate the patient. Ultrasound of the kidney did not show any obstruction. 09/18/2018 Patient appears to have hyponatremia secondary to hydrochlorothiazide and a mild ascites competent from urinary retention has a serum sodium improved to 129 is cleared by nephrology patient will be discharged today urology evaluated the patient as well will discontinue the Ogden catheter today we'll try voiding trial if she feels a voiding trial Inna Forrester reinserted patient will follow with urology as outpatient for cystoscopy and urodynamic studies. PHYSICAL EXAMINATION: GENERAL: The patient is alert and oriented x3, not in any acute distress. Well developed, well nourished. HEENT: Pupils are round and equally reacting to light. EOMI. No scleral icterus. No conjunctival pallor. Normocephalic, atraumatic. No pharyngeal erythema. No thyromegaly. CARDIOVASCULAR: S1 and S2 present. No murmurs, rubs, or gallops. PULMONARY: Chest is clear to auscultation, no wheezing or crackles. ABDOMEN: Soft, nontender, nondistended, normoactive bowel sounds. No palpable organomegaly. MUSCULOSKELETAL: No joint swelling or deformity. EXTREMITIES: No cyanosis, clubbing, or pedal edema. NEUROLOGICAL: Gross neurological examination did not reveal any focal deficits. SKIN: No rashes. Assessment and Plan Plan: -Hyponatremia: Patient may have multifactorial hyponatremia secondary to HIDA chlorothiazide and SIADH from urinary retention, improved now -Hypothyroidism: continue with levothyroxine -hyperlipidemia -Hypertension: Patient will be discharged on lisinopril Urinary retention: On as mentioned above Patient Condition at Discharge: Stable Plan - Discharge Summary Discharge Rx Participant: No New Discharge Prescriptions: New Lisinopril 10 mg PO DAILY #30 tab Discontinued Lisinopril-Hctz 20-25 mg [Zestoretic 20-25] 0.5 tab PO DAILY No Action Ferrous Sulfate [Iron (65 MG Elemental)] 325 mg PO AC-LUNCH Cyanocobalamin (Vitamin B-12) [Vitamin B-12] 1,000 mcg PO AC-LUNCH Calcium Carbonate/Vitamin D3 [Calcium 600-Vit D3 400 Caplet] 1 cap PO AC- LUNCH Levothyroxine Sodium [Synthroid] 50 mcg PO DAILY Aspirin 81 mg PO HS Atorvastatin [Lipitor] 80 mg PO DAILY #30 tab Metoprolol Tartrate [Lopressor] 25 mg PO TID #90 tab Discharge Medication List Aspirin 81 mg PO HS 04/17/17 [History] Calcium Carbonate/Vitamin D3 [Calcium 600-Vit D3 400 Caplet] 1 cap PO AC-LUNCH 04/17/17 [History] Cyanocobalamin (Vitamin B-12) [Vitamin B-12] 1,000 mcg PO AC-LUNCH 04/17/17 [ History] Ferrous Sulfate [Iron (65 MG Elemental)] 325 mg PO AC-LUNCH 04/17/17 [History] Levothyroxine Sodium [Synthroid] 50 mcg PO DAILY 04/17/17 [History] Atorvastatin [Lipitor] 80 mg PO DAILY #30 tab 04/19/17 [Rx] Metoprolol Tartrate [Lopressor] 25 mg PO TID #90 tab 04/19/17 [Rx] Lisinopril 10 mg PO DAILY #30 tab 09/18/18 [Rx] Follow up Appointment(s)/Referral(s): Josie Rogel MD [STAFF PHYSICIAN] - 1 Week (office closed for xmas, please call for appointment) Arpit Ramey DO [Primary Care Provider] - 3 Days (office closed for xmas, please call for appointment) Zach Huertas MD [STAFF PHYSICIAN] - 1 Week (office closed for xmas, please call for appointment) Patient Instructions/Handouts: A-fib (Atrial Fibrillation) (DC), Hyponatremia ( DC), Acute Urinary Retention in Women (GEN) Discharge Disposition: HOME SELF-CARE
[2018-09-18] MEDS ORDERED: METOPROLOL TARTRATE 25 MG TAB PO SCH (21:00)
== END 2018-09-18 16:59 | disposition home or self-care (01) | DRG 644 ==
LOC: EC 05:26 → 3SCARD 10:37
PROVIDERS: ADMIT Internal Medicine; ATTEND Internal Medicine
DX: E22.2 Syndrome of inappropriate secretion of antidiuretic hormone (principal); R18.8 Other ascites; T50.2X5A Adverse effect of carbonic-anhydrase inhibitors, benzothiadiazides and other diuretics, initial encounter; E03.9 Hypothyroidism, unspecified; E78.5 Hyperlipidemia, unspecified; I10 Essential (primary) hypertension; K59.00 Constipation, unspecified; N31.2 Flaccid neuropathic bladder, not elsewhere classified; Z79.890 Hormone replacement therapy; Z79.899 Other long term (current) drug therapy; Z82.49 Family history of ischemic heart disease and other diseases of the circulatory system; Z87.891 Personal history of nicotine dependence; Z79.82 Long term (current) use of aspirin; Z88.8 Allergy status to other drugs, medicaments and biological substances; R33.0 Drug induced retention of urine; Z98.49 Cataract extraction status, unspecified eye
CPT/HCPCS: 36415; 51702; 51798; 74018; 76770; 80048; 80053; 81001; 81003; 82533; 82570; 83930; 83935; 84300; 84443; 85025; 93005; 96360; 96361; 99284; 99285

== ENCOUNTER → 2023-02-27 | Outpatient (CLI) | payer MEDICARE ==
--- NOTE | 2023-02-27 12:19 | XR ---
EXAMINATION TYPE: XR Hip Complete RT DATE OF EXAM: 02/27/2023 CLINICAL HISTORY: Pain. TECHNIQUE: AP and frogleg views of the right hip are obtained. COMPARISON: None. FINDINGS: There is no acute fracture/dislocation evident in the right hip. Mild axial joint space loss. No significant spurring. The overlying soft tissue appears unremarkable. IMPRESSION: As above.
== END | disposition home or self-care (01) ==
LOC: RADXRYALE 11:45
PROVIDERS: ATTEND Physician Assistant
DX: M25.551 Pain in right hip (principal)
CPT/HCPCS: 73502

== ENCOUNTER → 2023-03-07 | Outpatient (CLI) | payer MEDICARE ==
--- NOTE | 2023-03-07 15:54 | BD ---
EXAMINATION TYPE: Axial Bone Density DATE OF EXAM: 03/07/2023 CLINICAL HISTORY: 82 years old Female. ICD-10 CODE: Z13.820 SCREENING FOR OSTEOPOROSIS Height: 59.5 Weight: 180 FRAX RISK QUESTIONS: nothing to note here. RISK FACTORS HISTORY OF: Family History of Osteoporosis: yes, mom Postmenopausal woman: yes, at about 51 yrs old Lost more than 2 inches in height since high school: yes Frequent falls: elderly Hyperparathyroidism: no Adrenal Insufficiency: no MEDICATIONS: Thyroid Medications: yes, synthroid, for 24 yrs Additional Medications: bp meds, Toprol, Simvastatin, aspirin, vit d, calcium, pain meds, Additional History: hypertension, cholesterol, thyroid, osteoarthritis, EXAM MEASUREMENTS: Bone mineral densitometry was performed using the [employer] System. Bone mineral density as measured about the Lumbar spine is: ----- L1-L4(G/cm2): 1.293 T Score Values are as follows: ----- L1: -0.3 ----- L2: 0.0 ----- L3: 1.5 ----- L4: 1.7 ----- L1-L4: 0.9 Z Score Values are as follows: ----- L1: 1.4 ----- L2: 1.7 ----- L3: 3.2 ----- L4: 3.4 ----- L1-L4: 2.6 Bone mineral density has: Increased 6.4% since study of: 09.10.2009 Bone mineral density about the R hip (g/cm2): 0.985 Bone mineral density about the L hip (g/cm2): 1.047 T Score values are as follows: -----R Neck: -0.6 -----L Neck: -0.5 -----R Total: -0.2 -----L Total: 0.3 Z Score values are as follows: -----R Neck: 1.6 -----L Neck: 1.7 -----R Total: 1.9 -----L Total: 2.4 Bone mineral density has: Increased 5.4% since study of: 09.10.2009 FRAX%s: The graph provided illustrates a 16.8% chance for a major osteoporotic fx and a 8.3% chance f or the hips probability for fx in 10 years time. IMPRESSION: Normal (Values between +1 and -1 indicate normal bone mass). Consider repeating this study in 5 year s or sooner if there is some new clinical indication. NOTE: T-SCORE=SD OF THE YOUNG ADULT MEAN.
== END | disposition home or self-care (01) ==
LOC: RADBDWWP 10:59
PROVIDERS: ATTEND Family Medicine
DX: Z13.820 Encounter for screening for osteoporosis (principal); I10 Essential (primary) hypertension
CPT/HCPCS: 77080

== ENCOUNTER 2023-04-22 17:35 | Emergency (ER) | payer MEDICARE ==
[2023-04-22 17:43] VITALS: TEMP 98.7
[2023-04-22] MEDS ORDERED: PANTOPRAZOLE 40 MG/10 ML VIAL IVP STA (18:37)
[2023-04-22] MEDS ORDERED: ONDANSETRON 4 MG/2 ML VIAL IVP STA (18:37)
[2023-04-22] MEDS ORDERED: MAG HYDROX/AL HYDROX/SIMETH 30 ML, HYOSCYAMINE ELIXIR 10 ML, LIDOCAINE 2% GLYDO JELLY 1... PO STA ×3 (18:37)
[2023-04-22] MEDS ORDERED: SODIUM CHLORIDE 0.9% 1,000 ML IV STA ×2 (18:37→21:14)
[2023-04-22] MEDS ORDERED: KETOROLAC 15 MG/ML 1 ML VIAL IVP STA (18:37)
--- NOTE | 2023-04-22 19:58 | US ---
EXAMINATION TYPE: US gallbladder DATE OF EXAM: 04/22/2023 COMPARISON: CT angio chest 2017 CLINICAL INDICATION: Female, 82 years old with history of ruq pain, n/v; RUQ pain on and off for year s but not going away this time, previous CT in 2017 showed cholelithiasis TECHNIQUE: Multiple sonographic images of the right upper quadrant are obtained. FINDINGS: EXAM MEASUREMENTS: Liver Length: 15.0 cm Gallbladder Wall: 0.3 cm CBD: 1.5 cm Right Kidney: 9.9 x 3.5 x 4.7 cm [employer] NOTES:short waisted elderly female with bowel gas, intercostal imaging used. Pancreas: wnl Liver: limited views appear wnl Gallbladder: tiny dependent stones seen with sludge, wall is borderline thick Evidence for sonographic Parson's sign: no CBD: dilated with no obvious obstruction seen Right Kidney: wnl IMPRESSION: Biliary sludge/cholelithiasis. No evidence for acute cholecystitis.
--- NOTE | 2023-04-22 20:07 | XR ---
EXAMINATION TYPE: XR chest 2V DATE OF EXAM: 04/22/2023 8:02 PM COMPARISON: Chest radiographs from 04/17/2017 TECHNIQUE: XR chest 2V Frontal and lateral views of the chest. CLINICAL INDICATION:Female, 82 years old with history of abdominal pain; FINDINGS: Lungs/Pleura: There is no evidence of pleural effusion, focal consolidation, or pneumothorax. Elevati on of the right hemidiaphragm. Pulmonary vascularity: Central pulmonary vascular prominence. Heart/mediastinum: Cardiomediastinal silhouette is enlarged. Musculoskeletal: No acute osseous pathology. IMPRESSION: Cardiomegaly with central pulmonary vasculature prominence. Correlate with BNP for congestive heart f ailure.
[2023-04-22 20:24] LABS: ALT 401 U/L (4-34); AST 646 U/L (14-36); African American GFR (CKD) 53 (>60 ml/min/1.73 sqM); Albumin 4.2 g/dL (3.5-5.0); Alkaline Phosphatase 199 U/L (38-126); Amylase 64 U/L (30-110); Anion Gap 10 mmol/L; Blood Urea Nitrogen 25 mg/dL (7-17); Calcium 9.5 mg/dL (8.4-10.2); Carbon Dioxide 25 mmol/L (22-30); Chloride 98 mmol/L (98-107); Glucose 111 mg/dL (74-99); Lipase 271 U/L (23-300); Non-African American GFR(CKD) 46 (>60 ml/min/1.73 sqM); Potassium 4.6 mmol/L (3.5-5.1); Sodium 133 mmol/L (137-145); Total Bilirubin 2.1 mg/dL (0.2-1.3); Total Protein 7.1 g/dL (6.3-8.2)
[2023-04-22 20:40] LABS: Basophils % (A) 0 %; Eosinophils # (A) 0.1 k/uL (0-0.7); Eosinophils % (A) 1 %; HCT 30.7 % (34.0-46.0); HGB 10.6 gm/dL (11.4-16.0); Lymphocytes # (A) 0.4 k/uL (1.0-4.8); Lymphocytes % (A) 6 %; MCH 33.9 pg (25.0-35.0); MCHC 34.6 g/dL (31.0-37.0); MCV 97.8 fL (80.0-100.0); Mean Platelet Volume 9.2; Monocytes # (A) 0.1 k/uL (0-1.0); Monocytes % (A) 2 %; Neutrophils # (A) 5.9 k/uL (1.3-7.7); Neutrophils % (A) 90 %; Platelet Count 141 k/uL (150-450); RBC 3.14 m/uL (3.80-5.40); RDW 13.2 % (11.5-15.5); WBC 6.5 k/uL (3.8-10.6)
--- NOTE | 2023-04-22 20:48 | ED ---
General Adult HPI - General Source: patient, RN notes reviewed, old records reviewed Mode of arrival: wheelchair Limitations: physical limitation <Parrish Glass - Last Filed: 04/22/23 20:51> - General Source: RN notes reviewed, old records reviewed Limitations: physical limitation - History of Present Illness -: days(s) Location: abdomen Radiation: abdomen Severity scale (1-10): 7 Quality: sharp Consistency: intermittent, colicky Improves with: none Worsens with: none Associated Symptoms: nausea/vomiting Treatments Prior to Arrival: none <Marcus Mendiola - Last Filed: 04/23/23 00:00> - General Chief complaint: Chest Pain Stated complaint: R Rib/Abd Pain Time Seen by Provider: 04/22/23 18:15 - History of Present Illness Initial comments: Patient is an 82-year-old female presents emergency Department complaining of abdominal pain, chest pain. States the pain is mostly in the right upper quadrant of her abdomen with radiation towards the epigastric region. Also is nauseous. Occasional radiation up into the lower part of her chest. Describes as burning, achy. States she is not expenses before. There is a family history of gallstones. Family believes this may be contributory to her symptoms. Feels nauseous but no emesis. Denies any diarrhea. Denies any other acute complaints at this time. He presents for further evaluation at this time. No significant cardiac history. States they did think she may have had A. fib at one point but could of been PACs, which she was eventually diagnosed with. She has no other acute complaints at this time. Presents for further evaluation at this time. (Parrish Glass) 82 female to the emergency department for evaluation abdominal pain chest pain and epigastric abdominal pain. (Marcus Mendiola) - Related Data Home Medications Medication Instructions Recorded Confirmed Aspirin 81 mg PO HS 04/17/17 04/22/23 Levothyroxine Sodium [Synthroid] 75 mcg PO [id number] 04/22/23 04/22/23 Simvastatin [Zocor] 40 mg PO HS 04/22/23 04/22/23 Previous Rx's Medication Instructions Recorded Metoprolol Tartrate [Lopressor] 25 mg PO TID #90 tab 04/19/17 lisinopriL 10 mg PO DAILY #30 tab 09/18/18 Allergies Allergy/AdvReac Type Severity Reaction Status Date / Time losartan Allergy Itching Verified 04/22/23 22:18 Review of Systems ROS Other: All systems not noted in ROS Statement are negative. <QuanParrish - Last Filed: 04/22/23 20:51> ROS Other: All systems not noted in ROS Statement are negative. <Marcus Mendiola - Last Filed: 04/23/23 00:00> ROS Statement: Those systems with pertinent positive or pertinent negative responses have been documented in the HPI. Review of Systems: CONST: Denies fever EYES: Denies blurry vision ENT: Denies nasal congestion C/V: Denies Chest pain RESP: Denies shortness of breath GI: Endorses abdominal pain : Denies dysuria SKIN: Denies rash. MSK: Denies joint pain. NEURO: Denies headache (Parrish Glass) Past Medical History Past Medical History: Hyperlipidemia, Hypertension, Thyroid Disorder Additional Past Medical History / Comment(s): palpitations History of Any Multi-Drug Resistant Organisms: None Reported Past Surgical History: No Surgical Hx Reported Additional Past Surgical History / Comment(s): catarct surgery Past Psychological History: No Psychological Hx Reported Past Alcohol Use History: None Reported Past Drug Use History: None Reported - Past Family History Father Family Medical History: Hypertension Mother Additional Family Medical History / Comment(s): palpitations, heart flutter <QuanParrish - Last Filed: 04/22/23 20:51> General Exam Limitations: physical limitation <QuanParrish - Last Filed: 04/22/23 20:51> Limitations: altered mental status, physical limitation General appearance: alert, in no apparent distress Head exam: Present: atraumatic, normocephalic, normal inspection Eye exam: Present: normal appearance, PERRL, EOMI. Absent: scleral icterus, conjunctival injection, periorbital swelling ENT exam: Present: normal exam, mucous membranes moist Neck exam: Present: normal inspection. Absent: tenderness, meningismus, lymph adenopathy Respiratory exam: Present: normal lung sounds bilaterally. Absent: respiratory distress, wheezes, rales, rhonchi, stridor Cardiovascular Exam: Present: tachycardia, irregular rhythm, normal heart sounds. Absent: systolic murmur, diastolic murmur, rubs, gallop, clicks GI/Abdominal exam: Present: soft, normal bowel sounds. Absent: distended, tenderness, guarding, rebound, rigid Extremities exam: Present: normal inspection, full ROM, normal capillary refill. Absent: tenderness, pedal edema, joint swelling, calf tenderness Back exam: Present: normal inspection Neurological exam: Present: alert, oriented X3, CN II-XII intact Psychiatric exam: Present: normal affect, normal mood Skin exam: Present: warm, dry, intact, normal color. Absent: rash <Marcus Mendiola - Last Filed: 04/23/23 00:00> - General Exam Comments Initial Comments: General: Appears in no acute distress. HEAD: Normal with no signs of head trauma. EYES: PERRLA, EOMI, conjunctiva normal, no discharge. ENT: Hearing grossly intact, normal oropharynx. RESPIRATORY: Clear breath sounds bilaterally. No wheezes, rales, or rhonchi. C/V: Tachycardia. S1 and S2 auscultated, no edema, peripheral pulses 2+ and intact throughout ABD: Abdomen soft, nondistended. Tender to palpation in the right upper quadrant and epigastric region. No guarding. No peritoneal signs. No rebound tenderness. EXT: Normal range of motion, no obvious deformity SKIN: No rashes or lesions observed on exposed skin. NEURO: Alert and oriented x 4. (Parrish Glass) Course <Marcus Mendiola - Last Filed: 04/23/23 00:00> Vital Signs 04/22/23 04/22/23 04/22/23 17:40 20:40 23:00 Temperature 98.7 F Pulse Rate 91 104 H 113 H Respiratory 18 16 16 Rate Blood Pressure 102/52 131/72 105/69 O2 Sat by Pulse 97 95 94 L Oximetry - Reevaluation(s) Reevaluation #1: 04/22/23 21:59 Medical records reviewed (Marcus Mendiola) Reevaluation #2: 04/22/23 23:57 Patient symptoms improved here in the ER resting comfortably (Marcus Mendiola) Reevaluation #3: 04/22/23 23:57 Patient informed of results questions answered (Marcus Mendiola) Reevaluation #4: 04/22/23 23:57 Was pt. sent in by a medical professional or institution (MATHIEU Babb, [employer], urgent care, hospital, or assisted...) When possible be specific @ -no Did you speak to anyone other than the patient for history (EMS, parent, family, police, friend...)? What history was obtained from this source @ -no Did you review nursing and triage notes (agree or disagree)? Why? @ -agree Are old charts reviewed (outside hosp., previous admission, EMS record, old EKG, old radiological studies, urgent care reports/EKG's, assisted records)? Report findings @ -yes Differential Diagnosis (chest pain, altered mental status, abdominal pain women, abdominal pain men, vaginal bleeding, weakness, fever, dyspnea, syncope, headache, dizziness, GI bleed, back pain, seizure, CVA, palpatations, mental health, musculoskeletal)? @ -prior EKG interpreted by me (3pts min.). @ -yes X-rays interpreted by me (1pt min.). @ -yes CT interpreted by me (1pt min.). @ -yes U/S interpreted by me (1pt. min.). @ -no What testing was considered but not performed or refused? (CT, X-rays, U/S, labs)? Why? @ -none What meds were considered but not given or refused? Why? @ -none Did you discuss the management of the patient with other professionals (professionals i.e. MATHIEU Babb, [employer], lab, RT, psych nurse, social media marketer, gas engine operator, teacher, ambulance officer, correctional case records supervisor)? Give summary @ -no Was smoking cessation discussed for >3mins.? @ -no Was critical care preformed (if so, how long)? @ -no Were there social determinants of health that impacted care today? How? (Homelessness, low income, unemployed, alcoholism, drug addiction, transportation, low edu. Level, literacy, decrease access to med. care, fci, rehab)? @ -none Was there de-escalation of care discussed even if they declined (Discuss DNR or withdrawal of care, Hospice)? DNR status @ -no What co-morbidities impacted this encounter? (DM, HTN, Smoking, COPD, CAD, Cancer, CVA, ARF, Chemo, Hep., AIDS, mental health diagnosis, sleep apnea, morbid obesity)? @ -none Was patient admitted / discharged? Hospital course, mention meds given and route, prescriptions, significant lab abnormalities, going to OR and other pertinent info. @ - 82 female to the emergency department for evaluation of severe abdominal pain. Right upper quadrant abdominal pain with nausea vomiting positive for gallstones or choledocholithiasis. Patient transferred for ERCP, patient also found to be nature fibrillation with RVR not currently on blood thinners and blood thinners not started secondary to need for procedure Transferred to [facility] Admitted Undiagnosed new problem with uncertain prognosis? @ -no Drug Therapy requiring intensive monitoring for toxicity (Heparin, Nitro, Insulin, Cardizem)? @ -no Were any procedures done? @ -no Diagnosis/symptom? @ -Acute choledocholithiasis, A. fib with RVR Acute, or Chronic, or Acute on Chronic? @ -Acute Uncomplicated (without systemic symptoms) or Complicated (systemic symptoms)? @ -Complicated Side effects of treatment? @ -no Exacerbation, Progression, or Severe Exacerbation? @ -exacerbation Poses a threat to life or bodily function? How? (Chest pain, [place], [place], pneumonia, PE, COPD, DKA, ARF, appy, cholecystitis, CVA, Diverticulitis, Homicidal, Suicidal, threat to staff... and all critical care pts) @ -yes (Marcus Mendiola) Reevaluation #5: 04/22/23 23:57 Differential Abdominal Pain Women: Appendicitis, Cholecystitis, diverticulosis, ischemic bowel, pancreatitis, hepatitis, UTI, gastroenteritis, AAA, incarcerated hernia, bowel obstruction, constipation, inflammatory bowel, hepatitis, peptic ulcer disease, splenic infarction, perforated viscus, vulvitis, ovarian torsion, PID, kidney stone, placenta abruption, this is not meant to be an all-inclusive list (Marcus Mendiola) - Consultations Consultation #1: Spoke with transferring hospital [facility] regarding both GI and ER who do accept patient in transfer (Marcus Mendiola) EKG Findings - EKG Comments: EKG Findings:: EKG is A. fib with RVR 150 QRS 95 QTC 390 - EKG Results: EKG: interpreted by ERMD <Marcus Mendiola - Last Filed: 04/23/23 00:00> Medical Decision Making - Lab Data Result diagrams: 04/22/23 19:17 04/22/23 19:17 <QuanParrish - Last Filed: 04/22/23 20:51> - Lab Data Result diagrams: 04/22/23 19:17 04/22/23 19:17 - Radiology Data Radiology results: report reviewed (Ultrasound shows cholelithiasis and sludge, CT head and pelvis shows gallstones and common bile duct), image reviewed <Marcus Mendiola - Last Filed: 04/23/23 00:00> - Medical Decision Making Was pt. sent in by a medical professional or institution (, PA, [employer], urgent care, hospital, or assisted...) When possible be specific @ -No Did you speak to anyone other than the patient for history (EMS, parent, family, police, friend...)? What history was obtained from this source @ -No Did you review nursing and triage notes (agree or disagree)? Why? @ -I reviewed and agree with nursing and triage notes Were old charts reviewed (outside hosp., previous admission, EMS record, old EKG, old radiological studies, urgent care reports/EKG's, assisted records)? Report findings @ -Old charts reviewed from August 2018. Differential Diagnosis (chest pain, altered mental status, abdominal pain women, abdominal pain men, vaginal bleeding, weakness, fever, dyspnea, syncope, headache, dizziness, GI bleed, back pain, seizure, CVA, palpatations, mental health, musculoskeletal)? @ -Differential Abdominal Pain Women: Appendicitis, Cholecystitis, diverticulosis, ischemic bowel, pancreatitis, hepatitis, UTI, gastroenteritis, AAA, incarcerated hernia, bowel obstruction, constipation, inflammatory bowel, hepatitis, peptic ulcer disease, splenic infarction, perforated viscus, vulvitis, ovarian torsion, PID, kidney stone, placenta abruption, this is not meant to be an all-inclusive list EKG interpreted by me (3pts min.). @ -As above X-rays interpreted by me (1pt min.). @ -Chest x-ray reveals no obvious acute cardiopulmonary process. Mild pulmonary vascular congestion. CT interpreted by me (1pt min.). @ -Pending U/S interpreted by me (1pt. min.). @ -Ultrasound reveals biliary sludge with the presence of cholelithiasis but no evidence of acute cholecystitis. CBD is dilated without any obvious obstruction. What testing was considered but not performed or refused? (CT, X-rays, U/S, labs)? Why? @ -None What meds were considered but not given or refused? Why? @ -None Did you discuss the management of the patient with other professionals (professionals i.e. , PA, OPTOMETRIC TECH, lab, RT, psych nurse, social media marketer, gas engine operator, teacher, ambulance officer, correctional case records supervisor)? Give summary @ -No Was smoking cessation discussed for >3mins.? @ -No Was critical care preformed (if so, how long)? @ -No Were there social determinants of health that impacted care today? How? (Homelessness, low income, unemployed, alcoholism, drug addiction, transportation, low edu. Level, literacy, decrease access to med. care, fci, rehab)? @ -No Was there de-escalation of care discussed even if they declined (Discuss DNR or withdrawal of care, Hospice)? DNR status @ -No What co-morbidities impacted this encounter? (DM, HTN, Smoking, COPD, CAD, Cancer, CVA, ARF, Chemo, Hep., AIDS, mental health diagnosis, sleep apnea, morbid obesity)? @ -None Was patient admitted / discharged? Hospital course, mention meds given and route, prescriptions, significant lab abnormalities, going to OR and other pertinent info. @ -Based on the patient's presentation and physical exam, I'm concerned for possible hepatobiliary pathology for current symptoms. We will obtain abdominal laboratory studies as well as screening EKG and troponin for atypical ACS. Sh e'll be symptomatically treated with IV fluids, Zofran, Toradol, Protonix. She'll also be given a GI cocktail. Patient was in agreement this plan. Vital signs within acceptable limits. Patient's labs are remarkable for a lactic acidosis of 2.2. Patient has an elevated AST and ALT as well as alk phos. Troponin is undetectable. Pancreatic enzymes within normal limits. Chest x-ray unremarkable. Gallbladder ultrasound reveals the presence of gallstones, mildly dilated CBD but no obvious evidence of obstructive process. I discussed results of the patient. I would like to obtain CT imaging of the abdomen and pelvis. She was in agreement this plan. CT is pending at this time. Patient signed out to Dr. Mendiola Pending results of imaging. Undiagnosed new problem with uncertain prognosis? @ -No Drug Therapy requiring intensive monitoring for toxicity (Heparin, Nitro, Insulin, Cardizem)? @ -No Were any procedures done? @ -No (Parrish Glass) 82 female to the emergency department for evaluation of severe abdominal pain. Right upper quadrant abdominal pain with nausea vomiting positive for gallstones or choledocholithiasis. Patient transferred for ERCP, patient also found to be nature fibrillation with RVR not currently on blood thinners and blood thinners not started secondary to need for procedure (Marcus Mendiola) - Lab Data Lab Results 04/22/23 04/22/23 04/22/23 Range/Units 19:17 19:17 19:17 WBC 6.5 (3.8-10.6) k/uL RBC 3.14 L (3.80-5.40) m/uL Hgb 10.6 L (11.4-16.0) gm/dL Hct 30.7 L (34.0-46.0) % MCV 97.8 (80.0-100.0) fL MCH 33.9 (25.0-35.0) pg MCHC 34.6 (31.0-37.0) g/dL RDW 13.2 (11.5-15.5) % Plt Count 141 L (150-450) k/uL MPV 9.2 Neutrophils % 90 % Lymphocytes % 6 % Monocytes % 2 % Eosinophils % 1 % Basophils % 0 % Neutrophils # 5.9 (1.3-7.7) k/uL Lymphocytes # 0.4 L (1.0-4.8) k/uL Monocytes # 0.1 (0-1.0) k/uL Eosinophils # 0.1 (0-0.7) k/uL Basophils # 0.0 (0-0.2) k/uL PT 10.7 (9.0-12.0) sec INR 1.0 (<1.2) APTT 19.5 L (22.0-30.0) sec Sodium 133 L (137-145) mmol/L Potassium 4.6 (3.5-5.1) mmol/L Chloride 98 (98-107) mmol/L Carbon Dioxide 25 (22-30) mmol/L Anion Gap 10 mmol/L BUN 25 H (7-17) mg/dL Creatinine 1.10 H (0.52-1.04) mg/dL Est GFR (CKD-EPI)AfAm 53 (>60 ml/min/1.73 sqM) Est GFR (CKD-EPI)NonAf 46 (>60 ml/min/1.73 sqM) Glucose 111 H (74-99) mg/dL Lactic Ac Sepsis Rflx Plasma Lactic Acid Burak (0.7-2.0) mmol/L Calcium 9.5 (8.4-10.2) mg/dL Total Bilirubin 2.1 H (0.2-1.3) mg/dL Conjugated Bilirubin (0.0-0.3) mg/dL Unconjugated Bilirubin (0.0-1.1) mg/dL Delta Bilirubin (0.0-0.2) mg/dL AST 646 H (14-36) U/L ALT 401 H (4-34) U/L Alkaline Phosphatase 199 H (38-126) U/L Ammonia (<30) umol/L Troponin I (0.000-0.034) ng/mL Total Protein 7.1 (6.3-8.2) g/dL Albumin 4.2 (3.5-5.0) g/dL Amylase 64 (30-110) U/L Lipase 271 (23-300) U/L Acetaminophen ug/mL 04/22/23 04/22/23 04/22/23 Range/Units 19:17 19:17 20:24 WBC (3.8-10.6) k/uL RBC (3.80-5.40) m/uL Hgb (11.4-16.0) gm/dL Hct (34.0-46.0) % MCV (80.0-100.0) fL MCH (25.0-35.0) pg MCHC (31.0-37.0) g/dL RDW (11.5-15.5) % Plt Count (150-450) k/uL MPV Neutrophils % % Lymphocytes % % Monocytes % % Eosinophils % % Basophils % % Neutrophils # (1.3-7.7) k/uL Lymphocytes # (1.0-4.8) k/uL Monocytes # (0-1.0) k/uL Eosinophils # (0-0.7) k/uL Basophils # (0-0.2) k/uL PT (9.0-12.0) sec INR (<1.2) APTT (22.0-30.0) sec Sodium (137-145) mmol/L Potassium (3.5-5.1) mmol/L Chloride (98-107) mmol/L Carbon Dioxide (22-30) mmol/L Anion Gap mmol/L BUN (7-17) mg/dL Creatinine (0.52-1.04) mg/dL Est GFR (CKD-EPI)AfAm (>60 ml/min/1.73 sqM) Est GFR (CKD-EPI)NonAf (>60 ml/min/1.73 sqM) Glucose (74-99) mg/dL Lactic Ac Sepsis Rflx Y Plasma Lactic Acid Burak 2.2 H* (0.7-2.0) mmol/L Calcium (8.4-10.2) mg/dL Total Bilirubin (0.2-1.3) mg/dL Conjugated Bilirubin (0.0-0.3) mg/dL Unconjugated Bilirubin (0.0-1.1) mg/dL Delta Bilirubin (0.0-0.2) mg/dL AST (14-36) U/L ALT (4-34) U/L Alkaline Phosphatase (38-126) U/L Ammonia (<30) umol/L Troponin I <0.012 (0.000-0.034) ng/mL Total Protein (6.3-8.2) g/dL Albumin (3.5-5.0) g/dL Amylase (30-110) U/L Lipase (23-300) U/L Acetaminophen ug/mL 04/22/23 04/22/23 04/22/23 Range/Units 21:50 21:50 22:30 WBC (3.8-10.6) k/uL RBC (3.80-5.40) m/uL Hgb (11.4-16.0) gm/dL Hct (34.0-46.0) % MCV (80.0-100.0) fL MCH (25.0-35.0) pg MCHC (31.0-37.0) g/dL RDW (11.5-15.5) % Plt Count (150-450) k/uL MPV Neutrophils % % Lymphocytes % % Monocytes % % Eosinophils % % Basophils % % Neutrophils # (1.3-7.7) k/uL Lymphocytes # (1.0-4.8) k/uL Monocytes # (0-1.0) k/uL Eosinophils # (0-0.7) k/uL Basophils # (0-0.2) k/uL PT (9.0-12.0) sec INR (<1.2) APTT (22.0-30.0) sec Sodium (137-145) mmol/L Potassium (3.5-5.1) mmol/L Chloride (98-107) mmol/L Carbon Dioxide (22-30) mmol/L Anion Gap mmol/L BUN (7-17) mg/dL Creatinine (0.52-1.04) mg/dL Est GFR (CKD-EPI)AfAm (>60 ml/min/1.73 sqM) Est GFR (CKD-EPI)NonAf (>60 ml/min/1.73 sqM) Glucose (74-99) mg/dL Lactic Ac Sepsis Rflx Plasma Lactic Acid Burak 1.1 (0.7-2.0) mmol/L Calcium (8.4-10.2) mg/dL Total Bilirubin 2.3 H (0.2-1.3) mg/dL Conjugated Bilirubin 0.5 H (0.0-0.3) mg/dL Unconjugated Bilirubin 1.1 (0.0-1.1) mg/dL Delta Bilirubin 0.7 H (0.0-0.2) mg/dL AST (14-36) U/L ALT (4-34) U/L Alkaline Phosphatase (38-126) U/L Ammonia <9 (<30) umol/L Troponin I (0.000-0.034) ng/mL Total Protein (6.3-8.2) g/dL Albumin (3.5-5.0) g/dL Amylase (30-110) U/L Lipase (23-300) U/L Acetaminophen <10.0 ug/mL Disposition <Parrish Glass - Last Filed: 04/22/23 20:51> Is patient prescribed a controlled substance at d/c from ED?: No Time of Disposition: 23:55 - Out of Hospital Transfer - Req. Specs Out of Hospital Transfer - Requested Specifics: Other Emergency Center ([facility]) <Marcus Mendiola - Last Filed: 04/23/23 00:00> Clinical Impression: Atrial fibrillation with RVR, Abdominal pain, Choledocholithiasis Disposition: OTHER INSTITUTION NOT DEFINED Condition: Fair Referrals: Arpit Ramey DO [Primary Care Provider] - 1-2 days
[2023-04-22 20:55] LABS: Prothrombin Time 10.7 sec (9.0-12.0)
[2023-04-22 21:04] LABS: Partial Thromboplastin Time 19.5 sec (22.0-30.0)
[2023-04-22] MEDS ORDERED: AMPICILLIN-SULBACTAM 3 GM in SODIUM CHLORIDE 0.9% 100 ML IVPB STA (21:14)
--- NOTE | 2023-04-22 21:22 | CT ---
EXAMINATION TYPE: CT abdomen pelvis w con CT DLP: 1390.3 mGycm, Automated exposure control for dose reduction was used. DATE OF EXAM: 04/22/2023 9:16 PM COMPARISON: None CLINICAL INDICATION:Female, 82 years old with history of RUQ abd pain; RUQ abdominal pain. TECHNIQUE: Axial CT of the abdomen and pelvis. Sagittal and coronal reformats were created on a [employer] workstation. Contrast used:80 ml mL of Isovue 300 with IV Contrast, (none if empty) Oral contrast used: without Oral Contrast (none if empty) FINDINGS: LOWER CHEST: Heart is mildly enlarged. Elevated right diaphragm. ABDOMEN LIVER: Unremarkable GALLBLADDER AND BILE DUCTS: Gallbladder is distended with layering cholelithiasis versus biliary debr is. Layering debris seen within the common bile duct series 201 image 37. PANCREAS: Unremarkable. SPLEEN: Unremarkable. ADRENAL GLANDS: Unremarkable. KIDNEYS AND URETERS: No evidence of hydronephrosis or renal calculus. The ureters are unremarkable. PELVIS BLADDER: Unremarkable REPRODUCTIVE: Unremarkable. ABDOMEN & PELVIS STOMACH AND BOWEL: No evidence of bowel obstruction. Multilevel scattered colonic diverticulosis. Loo ps of large bowel extend above the right diaphragm. PERITONEUM/RETROPERITONEUM: No evidence of pneumoperitoneum or free fluid. VASCULATURE: Mild atherosclerotic calcifications are present throughout the abdominal aorta and its b ranches. No evidence of aortic aneurysm. MUSCULOSKELETAL: No acute osseous abnormalities. Mild disc degeneration changes are present throughou t the thoracolumbar spine. LYMPH NODES: No gross evidence for lymphadenopathy. SOFT TISSUE/ABDOMINAL WALL: Fat filled umbilical hernia. IMPRESSION: 1. Choledocholithiasis with multiple stones visualized in the common bile duct. Additionally there i s distended gallbladder with cholelithiasis. ERCP recommended. 2. Multiple loops of large bowel about the liver. 3. Cardiomegaly.
[2023-04-22 22:16] LABS: Acetaminophen <10.0 ug/mL; Bilirubin, Conjugated 0.5 mg/dL (0.0-0.3); Bilirubin, Delta 0.7 mg/dL (0.0-0.2); Bilirubin,Unconjugated 1.1 mg/dL (0.0-1.1); Total Bilirubin 2.3 mg/dL (0.2-1.3)
[2023-04-23 01:14] VITALS: BP 104/60; PULSE 92; RESP 14
== END 2023-04-23 01:14 | disposition other institution (70) ==
LOC: EC 17:35
DX: K80.70 Calculus of gallbladder and bile duct without cholecystitis without obstruction (principal); I48.20 Chronic atrial fibrillation, unspecified; I11.0 Hypertensive heart disease with heart failure; I50.9 Heart failure, unspecified; E07.9 Disorder of thyroid, unspecified; Z79.890 Hormone replacement therapy; Z79.899 Other long term (current) drug therapy; Z79.82 Long term (current) use of aspirin
CPT/HCPCS: 93005; 80053; 82140; 82150; 82248; 83605; 83690; 84484; 85025; 85610; 85730; 80143; 71046; 76705; 74177; 99285; 96365; 96375 ×3; 96361 ×5; J2405; J0295; J1885; C9113; Q9967; 36415